=== PATIENT | female | born 2000 | race Caucasian/White ===

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

== ENCOUNTER 2022-04-03 12:08 | Outpatient (CLI) | payer BC, MEDICAID, SELFPAY ==
[2022-04-03 16:28] LABS: Basophils Percent Auto 0.5 % (0.2-1.2); Eosinophils Percent Auto 0.3 % (0-4.4); Hematocrit 41.9 % (37.0-47.0); Hemoglobin 14.4 g/dL (12.0-15.0); Immature Granulocyte Absolute 0.02 K/mm3 (0.00-0.031); Immature Granulocyte Percent A 0.3 % (0-0.5); Lymphocytes Absolute Auto 1.21 K/mm3 (0.9-3.2); Lymphocytes Percent Auto 19.4 % (18.3-44.2); Mean Corpuscular HGB Conc 34.4 g/dl (32-36); Mean Corpuscular Hemoglobin 30.4 pg (26-34); Mean Corpuscular Volume 88.4 fl (80-100); Mean Platelet Volume 11.2 fl (7.4-10.4); Monocytes Absolute Auto 0.4 K/mm3 (0.1-0.6); Monocytes Percent Auto 5.6 % (2.6-8.5); Neutrophils Absolute Auto 4.6 K/mm3 (1.3-6.7); Neutrophils Percent Auto 73.9 % (45.5-73.1); Platelet Count Result 250 k/mm3 (150-375); Red Blood Count 4.74 M/mm3 (4.2-5.4); Red Cell Distribution Width 12.5 % (11.5-14.5); White Blood Count 6.2 K/mm3 (4.5-10.0)
[2022-04-03 17:28] LABS: Alanine Aminotransferase 16 U/L (6-35); Alkaline Phosphatase 60 U/L (38-126); Anion Gap 15 mmol/L (8-16); Aspartate Amino Transferase 24 U/L (14-36); Bilirubin,Total 0.5 mg/dL (0.2-1.3); Blood Urea Nitrogen 10 mg/dL (7-17); Calcium 9.4 mg/dL (8.4-10.2); Carbon Dioxide 20 mmol/L (22-30); Chloride 106 mmol/L (98-107); Estimated Glomerular Filt Rate > 60; Glucose 93 mg/dL (65-110); Potassium 3.2 mmol/L (3.4-5.0); Sodium 141 mmol/L (137-145)
[2022-04-03 17:53] LABS: Thyroid Stimulating Hormone 0.151 uIU/mL (0.465-4.680)
[2022-04-03 17:58] LABS: Vitamin D 25 Hydroxy 70.1 ng/mL
[2022-04-03 18:33] LABS: Folic Acid > 20.0 ng/mL (2.76->20)
== END 2022-04-03 12:09 | disposition home or self-care (01) ==
PROVIDERS: PCP Internal Medicine; Visit Provider Internal Medicine
DX: G80.9 Cerebral palsy, unspecified (principal); Z13.0 Encounter for screening for diseases of the blood and blood-forming organs and certain disorders involving the immune mechanism; Z13.228 Encounter for screening for other metabolic disorders; Z13.29 Encounter for screening for other suspected endocrine disorder; E55.9 Vitamin D deficiency, unspecified
CPT/HCPCS: 36415; 80053; 82306; 82607; 82746; 84443; 85025

== ENCOUNTER 2022-04-17 13:26 | Outpatient (CLI) | payer BC, MEDICAID, SELFPAY ==
[2022-04-17 19:41] LABS: Anion Gap 14 mmol/L (8-16); Blood Urea Nitrogen 13 mg/dL (7-17); Calcium 9.3 mg/dL (8.4-10.2); Carbon Dioxide 21 mmol/L (22-30); Chloride 107 mmol/L (98-107); Estimated Glomerular Filt Rate > 60; Glucose 96 mg/dL (65-110); Magnesium 2.1 mg/dL (1.6-2.3); Potassium 3.9 mmol/L (3.4-5.0); Sodium 142 mmol/L (137-145)
[2022-04-17 20:00] LABS: Free T4 Free Thyroxine 1.22 ng/mL (0.78-2.19)
[2022-04-20 20:38] LABS: Triiodothyronine T3 Free 3.1 pg/mL (2.3-4.2)
== END 2022-04-17 13:27 | disposition home or self-care (01) ==
LOC: ANHGOSHLAB 13:29
PROVIDERS: PCP Internal Medicine; Visit Provider Internal Medicine
DX: E05.90 Thyrotoxicosis, unspecified without thyrotoxic crisis or storm (principal); E87.6 Hypokalemia
CPT/HCPCS: 36415; 80048; 83735; 84439; 84443; 84481

== ENCOUNTER 2022-10-02 12:03 | Outpatient (CLI) | payer BC, MEDICAID, SELFPAY ==
[2022-10-02 16:56] LABS: Basophils Percent Auto 0.3 % (0.2-1.2); Eosinophils Absolute Auto 0.1 K/mm3 (0-0.3); Eosinophils Percent Auto 1.6 % (0-4.4); Hematocrit 42.5 % (37.0-47.0); Immature Granulocyte Absolute 0.02 K/mm3 (0.00-0.031); Immature Granulocyte Percent A 0.3 % (0-0.5); Immature Platelet Fraction Pct 11.3 % (0.9-11.2); Lymphocytes Absolute Auto 1.55 K/mm3 (0.9-3.2); Lymphocytes Percent Auto 24.2 % (18.3-44.2); Mean Corpuscular HGB Conc 32.9 g/dl (32-36); Mean Corpuscular Hemoglobin 29.4 pg (26-34); Mean Corpuscular Volume 89.3 fl (80-100); Monocytes Absolute Auto 0.4 K/mm3 (0.1-0.6); Monocytes Percent Auto 5.6 % (2.6-8.5); Neutrophils Absolute Auto 4.4 K/mm3 (1.3-6.7); Platelet Count Result 200 k/mm3 (150-375); Red Blood Count 4.76 M/mm3 (4.2-5.4); Red Cell Distribution Width 12.9 % (11.5-14.5); White Blood Count 6.4 K/mm3 (4.5-10.0)
[2022-10-02 17:19] LABS: Alanine Aminotransferase 19 U/L (6-35); Albumin Level 4.6 g/dL (3.5-5.1); Alkaline Phosphatase 66 U/L (38-126); Anion Gap 10 mmol/L (8-16); Aspartate Amino Transferase 26 U/L (14-36); Bilirubin,Total 0.6 mg/dL (0.2-1.3); Blood Urea Nitrogen 11 mg/dL (7-17); Calcium 9.3 mg/dL (8.4-10.2); Carbon Dioxide 25 mmol/L (22-30); Chloride 107 mmol/L (98-107); Estimated Glomerular Filt Rate > 60; Glucose 100 mg/dL (65-110); Potassium 4.1 mmol/L (3.4-5.0); Sodium 142 mmol/L (137-145)
[2022-10-02 17:47] LABS: Thyroid Stimulating Hormone 0.191 uIU/mL (0.465-4.680)
[2022-10-02 18:02] LABS: Vitamin D 25 Hydroxy 66.5 ng/mL
[2022-10-02 18:40] LABS: Platelet Estimate Adequate (Adequate); Schistocytes None Seen (NORMAL)
[2022-10-06 04:29] LABS: Thyroid Peroxidase Antibodies <1 IU/mL (<9)
== END 2022-10-02 12:04 | disposition home or self-care (01) ==
LOC: ANHGOSHLAB 12:05
PROVIDERS: PCP Internal Medicine; Visit Provider Clinical Nurse Specialist
DX: E05.90 Thyrotoxicosis, unspecified without thyrotoxic crisis or storm (principal); E53.8 Deficiency of other specified B group vitamins; E55.9 Vitamin D deficiency, unspecified; E87.6 Hypokalemia
CPT/HCPCS: 36415; 80053; 82306; 82607; 83735; 84439; 84443; 85025; 85055; 86376

== ENCOUNTER 2022-12-04 12:24 | Outpatient (CLI) | payer BC, MEDICAID, SELFPAY ==
--- NOTE | ~2022-12-04 | US_ITS ---
Thyroid ultrasound. Clinical History: Thyrotoxicosis Findings: Real-time sonography of the thyroid gland was performed. The right lobe measures 4.6 x 1.5 x 1.4 cm. The left lobe measures 4.1 x 0.7 x 1.3 cm. The isthmus is 4 mm in AP diameter. Impression: No significant abnormality seen.. Reviewed, dictated and finalized at [facility]. Impression: No significant abnormality seen..
== END 2022-12-04 12:25 | disposition home or self-care (01) ==
PROVIDERS: PCP Internal Medicine; Visit Provider Internal Medicine
DX: E05.90 Thyrotoxicosis, unspecified without thyrotoxic crisis or storm (principal)
CPT/HCPCS: 76536

== ENCOUNTER 2022-12-04 13:23 | Outpatient (CLI) | payer BC, MEDICAID, SELFPAY ==
[2022-12-04 19:27] LABS: Free T4 Free Thyroxine 1.16 ng/mL (0.78-2.19)
[2022-12-04 20:02] LABS: Thyroid Stimulating Hormone 0.301 uIU/mL (0.465-4.680)
[2022-12-06 13:48] LABS: Thyroid Stimulating Immunoglob <89 % baseline (<140)
[2022-12-07 02:20] LABS: Thyroid Peroxidase Antibodies <1 IU/mL (<9)
[2022-12-07 04:28] LABS: Triiodothyronine T3 Free 3.5 pg/mL (2.3-4.2)
[2022-12-07 18:35] LABS: Thyrotropin Receptor Antibody <1.00 IU/L (<=2.00)
== END 2022-12-04 13:24 | disposition home or self-care (01) ==
LOC: ANHGOSHLAB 13:26
PROVIDERS: PCP Internal Medicine; Visit Provider Internal Medicine
DX: E05.90 Thyrotoxicosis, unspecified without thyrotoxic crisis or storm (principal)
CPT/HCPCS: 36415; 83519; 84439; 84443; 84445; 84481; 86376

== ENCOUNTER 2022-12-26 11:52 | Outpatient (CLI) | payer BC, MEDICAID, SELFPAY ==
--- NOTE | ~2022-12-26 | XR_ITS ---
EXAMINATION: SCOLIOSIS DATE: 12/26/2022 20:17 CDT INDICATION: Cerebral palsy TECHNIQUE: Standing AP and lateral views of the thoracolumbar spine FINDINGS: There are 12 rib bearing thoracic vertebral bodies and 5 non-rib bearing lumbar type verteb ral bodies. There is no listhesis, compression deformity or vertebral body anomalies. There is mild dextrocurvature of the thoracolumbar spine centered at T12 of 8 degrees. Incidental note is made of fecal impaction of the colon and rectum. There are degenerative changes and remodeling of the left hi p/acetabulum. IMPRESSION: 1. Mild dextroscoliosis of the thoracolumbar spine measuring 8 degrees. 2. No vertebral body anomalies. 3: Fecal impaction of the colon and rectum. Reviewed, dictated and finalized at location A.
--- NOTE | ~2022-12-26 | XR_ITS ---
AP and lateral views of the bilateral hips Clinical history: Pain Findings: No acute fracture or dislocation is seen. There is probable mild dysplasia of the left acet abulum and left femoral head. Questionable minimal dysplasia of the right acetabulum.. Soft tissues a re unremarkable. 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 Additional minimal dysplasia of the r ight acetabulum. Reviewed, dictated and finalized at location M. 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 Additional mini mal dysplasia of the right acetabulum.
== END 2022-12-26 11:53 | disposition home or self-care (01) ==
PROVIDERS: PCP Internal Medicine; Visit Provider Clinical Nurse Specialist
DX: G80.9 Cerebral palsy, unspecified (principal); M25.559 Pain in unspecified hip; K56.41 Fecal impaction; M41.9 Scoliosis, unspecified
CPT/HCPCS: 72082; 73521

== ENCOUNTER 2024-03-14 12:44 | Emergency (ER) | payer BC, MEDICAID, SELFPAY ==
--- NOTE | ~2024-03-14 | CT_ITS ---
EXAMINATION: CT abdomen pelvis w con DATE: 03/14/2024 14:11 INDICATION: Left lower quadrant abdominal pain. Constipation. TECHNIQUE: Computed tomography (CT) of the abdomen and pelvis was performed with 100 mL Omnipaque 350 intravenous contrast. Automated exposure control and iterative reconstruction technique were employe d. The dose-length product was 211.91 mGy-cm. COMPARISON: None. FINDINGS: The visualized portions of the lung bases demonstrate minimal atelectasis. No pleural effus ion. The heart size is normal. No pericardial effusion. The liver, gallbladder, spleen, pancreas, adr enal glands, and kidneys are normal. The rectosigmoid is distended with a large volume of stool. Ther e are no pathologically enlarged lymph nodes. There is no free intraperitoneal fluid. There is a cath eter in the bladder. There is a subcutaneous pump in right lower quadrant with intrathecal catheter. There is mild thoracic and lumbar spondylosis. There is lumbar dextroscoliosis is noted. IMPRESSION: 1. Distended rectosigmoid with large volume of stool. Reviewed, dictated and finalized at location A.
[2024-03-14 12:45] VITALS: BP 140/106; PULSE 146; RESP 16; TEMP 36.6; O2SAT 100
--- NOTE | 2024-03-14 13:12 | ED.GENADULT ---
HPI - General Adult General Chief complaint: Abdominal Pain Stated complaint: dehydration? Time Seen by Provider: 03/14/24 13:05 History of Present Illness HPI narrative: Patient 23-year-old female who presents emergency department with chief complaint of abdominal pain and constipation. The patient has history of cerebral palsy and has had issues with constipation the patient passed some large stools and then started having liquid stool and then has not had a bowel movement since the patient started vomiting and a noticed her heart rate has been tachycardic. The family is concerned that she may have a bowel obstruction Related Data Home Medications Medication Instructions Recorded Confirmed Baclofen Pump See Rx Instructions .Route .COMPLEX 10/21/19 04/10/23 montelukast 10 mg tablet 10 mg PO DAILY 10/21/19 04/10/23 polyethylene glycol 3350 17 17 g PO QPM 10/21/19 04/10/23 gram/dose oral powder (Miralax) sennosides 8.6 mg tablet (Senna 8.6 mg PO QPM 10/21/19 04/10/23 Laxative) Allergies Allergy/AdvReac Type Severity Reaction Status Date / Time No Known Allergies Allergy Verified 03/14/24 13:42 Review of Systems Review of Systems: A 10 system review of systems was completed on the patient and is negative except for what is stated in the HPI. Nursing and ancillary documentation was reviewed. [facility] Past Medical History Medical History Cerebral palsy Surgical History Surgical History History of strabismus surgery Hx of tonsillectomy Status post insertion of intrathecal baclofen pump Family History Family History Grandparent CHF (congestive heart failure) COPD (chronic obstructive pulmonary disease) Breast cancer Lung cancer Sibling ADHD Social History Social History Smoking status: Never smoker Alcohol intake: never Substance use: never Lack of Transportation: No Lack of Food: Never True Current Housing: I Have Housing Concerned About Future Housing: No Difficulty Paying Gas/Electric Bills: No Difficulty Paying for Meds: No Currently Unemployed: No Education: High School Diploma/GED Difficulty w/ Childcare or Family Care: No Exam Narrative: GENERAL: Well-appearing, well-nourished, and in no acute distress. HEAD: Normocephalic, atraumatic. EYES: PERRLA and EOMI. ENT: Nares clear, no rhinorrhea or epistaxis. Mucous membranes moist. NECK: Supple. CHEST: Clear to auscultation. No respiratory distress. HEART: Regular rate and rhythm. No murmur heard. Normal peripheral pulses. ABDOMEN: Soft, nontender, nondistended, normal active bowel sounds. EXTREMITIES: Normal range of motion. No edema. SKIN: Warm, dry, no rash. NEURO: No focal deficits. Alert and oriented x3. PSYCH: Normal mood and affect. Course Vital Signs Vital signs: Vital Signs Temperature 36.6 C 03/14/24 12:45 Pulse Rate 146 H 03/14/24 12:45 Respiratory Rate 16 03/14/24 12:45 Blood Pressure 140/106 H 03/14/24 12:45 Pulse Oximetry 100 03/14/24 12:45 Oxygen Delivery Room Air 03/14/24 12:45 Temperature 36.6 C 03/14/24 12:45 Pulse Rate 87 03/14/24 16:41 Respiratory Rate 16 03/14/24 16:41 Blood Pressure 121/78 03/14/24 16:41 Pulse Oximetry 99 03/14/24 16:41 Oxygen Delivery Room Air 03/14/24 12:45 Medical Decision Making [facility] Narrative Medical decision making narrative: Differential diagnosis includes fecal impaction, intra-abdominal infection, diverticulitis, colitis CT scan of the abdomen pelvis showed a large amount of stool in the rectal vault. The patient received a soapsuds enema then digital disimpaction with a follow-up Colace enema. The patient did have a bowel movement at that time Pa
[2024-03-14] MEDS: ONDANSETRON INJ 4 MG/2 ML VIAL IV PUSH (13:29)
[2024-03-14] MEDS: SODIUM CHLORIDE 0.9% IV 1,000 ML 999 ML IV CONT (13:29)
[2024-03-14 13:32] LABS: Basophils Percent Auto 0.3 % (0.2-1.2); Eosinophils Percent Auto 0.1 % (0-4.4); Hematocrit 45.4 % (37.0-47.0); Hemoglobin 15.6 g/dL (12.0-15.0); Immature Granulocyte Absolute 0.02 K/mm3 (0.00-0.031); Immature Granulocyte Percent A 0.2 % (0-0.5); Lymphocytes Absolute Auto 1.53 K/mm3 (0.9-3.2); Lymphocytes Percent Auto 17.1 % (18.3-44.2); Mean Corpuscular HGB Conc 34.4 g/dl (32-36); Mean Corpuscular Hemoglobin 30.4 pg (26-34); Mean Corpuscular Volume 88.3 fl (80-100); Mean Platelet Volume 10.5 fl (7.4-10.4); Monocytes Absolute Auto 0.4 K/mm3 (0.1-0.6); Monocytes Percent Auto 3.9 % (2.6-8.5); Neutrophils Percent Auto 78.4 % (45.5-73.1); Platelet Count Result 286 k/mm3 (150-375); Red Blood Count 5.14 M/mm3 (4.2-5.4); Red Cell Distribution Width 12.1 % (11.5-14.5)
[2024-03-14 13:43] LABS: Lactic Acid Reflex 1.5 mmol/L (0.7-2.0)
[2024-03-14 13:45] LABS: Alanine Aminotransferase 20 U/L (6-35); Albumin Level 5.6 g/dL (3.5-5.1); Alkaline Phosphatase 63 U/L (38-126); Anion Gap 16 mmol/L (4-12); Aspartate Amino Transferase 32 U/L (14-36); Bilirubin,Total 1.2 mg/dL (0.2-1.3); Blood Urea Nitrogen 13 mg/dL (7-17); Calcium 9.8 mg/dL (8.4-10.2); Carbon Dioxide 18 mmol/L (22-30); Chloride 104 mmol/L (98-107); Estimated Glomerular Filt Rate > 60; Glucose 105 mg/dL (65-110); Lipase 100 U/L (23-300); Potassium 4.2 mmol/L (3.4-5.0); Sodium 138 mmol/L (137-145)
[2024-03-14 15:22] LABS: Appearance Urine Clear (Clear); Bilirubin Urine Negative (Negative); Blood Urine Negative (Negative); Color Urine Yellow (Yellow); Glucose Urine UA Negative (Negative); Ketones Urine 2+ mg/dL (Negative); Leukocyte Esterase Ur Negative LEU/UL (Negative); Nitrate Urine Negative (Negative); Protein Urine Negative (Negative); Specific Grav Ur 1.031 (1.001-1.035); Urobilinogen Urine 0.2 mg/dL (<2.0); pH Urine 5.5 (5.0-9.0)
[2024-03-14 15:27] LABS: Add Urine Microscopic? NO
[2024-03-14 16:41] VITALS: BP 121/78; PULSE 87; RESP 16; O2SAT 99
[2024-03-14] MEDS: DOCUSATE SODIUM 400 MG/400 ML ENEMA RECTAL (17:02)
[2024-03-14 18:25] VITALS: BP 138/89; PULSE 82; RESP 19; O2SAT 100
== END 2024-03-14 18:29 | disposition home or self-care (01) ==
PROVIDERS: Nurse Practitioner Family; Emergency Provider Emergency Medicine; PCP Internal Medicine
DX: K59.00 Constipation, unspecified (principal); G80.9 Cerebral palsy, unspecified; Z79.1 Long term (current) use of non-steroidal anti-inflammatories (NSAID); Z79.899 Other long term (current) drug therapy
CPT/HCPCS: 36415; 74177; 80053; 81003; 81025; 83605; 83690; 85025; 96361; 96374; 99284; J2405; J7030; Q9967

== ENCOUNTER 2024-03-17 15:26 | Inpatient (IN) | payer BC, MEDICAID, SELFPAY ==
--- NOTE | ~2024-03-17 | CT_ITS ---
EXAMINATION: CT abdomen pelvis w con DATE: 03/17/2024 22:06 INDICATION: Generalized abdominal pain. Constipation. TECHNIQUE: Computed tomography (CT) of the abdomen and pelvis was performed with 100 mL Omnipaque 350 intravenous contrast. Automated exposure control and iterative reconstruction technique were employe d. The dose-length product was 211.94 mGy-cm. COMPARISON: CT abdomen and pelvis 03/14/2024 FINDINGS: The visualized portions of the lung bases are clear without pneumonia or pleural effusion. The heart size is normal. No pericardial effusion. The liver, gallbladder, spleen, pancreas, adrenal glands, and kidneys are normal. Stool markedly distends the rectosigmoid with wall thickening, consis tent with stercoral colitis. There are no pathologically enlarged lymph nodes. There is no ascites. T here is an intrathecal pump. There is thoracolumbar dextroscoliosis. IMPRESSION: 1. Stercoral colitis. Reviewed, dictated and finalized at location E. IMPRESSION: 1. Stercoral colitis.
--- NOTE | ~2024-03-17 | XR_ITS ---
XR abdomen/kub 1V 03/21/2024 10:25 Indication: Assess fecal impaction Procedure: KUB Comparison: 03/20/2024 Findings: Significant improvement of fecal impaction of the rectum. There are dilated small bowel loo ps throughout the abdomen, consistent with ileus. No acute osseous abnormality. Lung bases unremarkab le. No abnormal calcifications. No acute osseous abnormality. Impression: 1: Significant interval improvement of fecal impaction of the rectum. Reviewed, dictated and finalized at location B. Impression: 1: Significant interval improvement of fecal impaction of the rectum.
--- NOTE | ~2024-03-17 | XR_ITS ---
XR abdomen obstructive series 03/18/2024 11:12 Indication: Constipation Procedure: Supine and upright views of abdomen Comparison: CT dated 03/17/2024 Findings: There is fecal impaction of the distal colon or rectum with mildly dilated small bowel and colon which are gas-filled. There is a battery device overlying the right mid abdomen. No acute osseo us abnormality. Impression: 1: Fecal impaction of the distal colon and rectum. Reviewed, dictated and finalized at location B. Impression: 1: Fecal impaction of the distal colon and rectum.
--- NOTE | ~2024-03-17 | XR_ITS ---
Supine and upright views of the abdomen Clinical history: Stool impaction COMPARISON: 03/18/2024 Findings: There is large amount of stool at the rectum, compatible with fecal impaction.. No evidence for obstruction or free air. No abnormal mass lesion or calcification is seen. Osseous structures ar e intact. Impression: Large amount of stool at the rectum is compatible with fecal impaction. Appearance is similar to prio r exam. Reviewed, dictated and finalized at location M. Impression: Large amount of stool at the rectum is compatible with fecal impaction. Appeara nce is similar to prior exam.
[2024-03-17 15:32] VITALS: BP 117/81; PULSE 108; RESP 16; TEMP 36.7; O2SAT 99
[2024-03-17 17:41] VITALS: BP 110/78; PULSE 103; RESP 17; TEMP 36.6; O2SAT 100
[2024-03-17 19:53] VITALS: BP 128/86; PULSE 110; RESP 15; TEMP 36.6; O2SAT 99
[2024-03-17 20:22] VITALS: BP 128/85; PULSE 95; RESP 15; O2SAT 100
--- NOTE | 2024-03-17 20:36 | ECG_ITS ---
Test Date: 2024-03-17 21:49:45 Measurements Intervals [place] Rate: 126 P: 78 [place]: 144 QRS: 90 QRSD: 70 T: 12 QT: 312 QTc: 452 Interpretive Statements SINUS TACHYCARDIA ST-T WAVE ABNORMALITY IN ANTERIOR LEADS- CONSIDER ISCHEMIA ABNORMAL ECG No previous ECG available for comparison Electronically Signed On 03-18-2024 06:14:20 CDT by Anthony Abdi D.O.
--- NOTE | 2024-03-17 20:38 | ED.GENADULT ---
HPI - General Adult General Chief complaint: Unspecified <Licha Donohue PA-C - Last Filed: 03/18/24 01:45> Stated complaint: sent by PCP for re eval <Licha Donohue PA-C - Last Filed: 03/18/24 01:45> Time Seen by Provider: 03/17/24 19:51 <Licha Donohue PA-C - Last Filed: 03/18/24 01:45> History of Present Illness HPI narrative: 23-year-old female with history of CP presents to emergency department with her mother at bedside for constipation. patient and mother both provide history. Patient's mother states she passed a very large stool ball 5 days ago and few hours later had a bout of diarrhea. Since then she has not had any bowel movement. She has been seen in our emergency department and [facility] ER since. She had [address] performed our ED and a KUB at [facility]. States that she has had attempted multiple enemas and GoLYTELY without improvement. She is passing gas but is not able to pass any stool. She reports diffuse abdominal discomfort but denies any significant pain. She denies dysuria. She did recently start her menstrual cycle. They also presenting with concerns for her fast heart rate. She went to see her PCP today, Dr. Valadez, and was found to be tachycardic around 160 bpm while in the office. Patient's PCP had advised him to come to the ED for further evaluation given her significant tachycardia and constipation. She denies chest pain or shortness of breath, fever. Patient and mother both note that she has been having difficulty keeping down food and fluids secondary to abdominal discomfort. She had 2 episodes of emesis a few days ago and has not been able to keep down much since. <Licha Donohue PA-C - Last Filed: 03/18/24 01:45> Related Data Home medications: Home Medications Medication Instructions Recorded Confirmed Baclofen Pump See Rx Instructions .Route .COMPLEX 10/21/19 03/18/24 montelukast 10 mg tablet 10 mg PO DAILY PRN Allergy Symptoms 10/21/19 03/18/24 sennosides 8.6 mg tablet (Senna 40 mg PO QPM 10/21/19 03/18/24 Laxative) potassium chloride 10 mEq 10 meq PO DAILY 03/18/24 03/18/24 capsule,extended release <Licha Donohue PA-C - Last Filed: 03/18/24 01:45> Allergies/adverse reactions: Allergies Allergy/AdvReac Type Severity Reaction Status Date / Time No Known Allergies Allergy Verified 03/17/24 14:05 <Licha Donohue PA-C - Last Filed: 03/18/24 01:45> Review of Systems Review of Systems: CONSTITUTIONAL: Denies fever, chills, or sweats. EYES: Denies visual changes, redness, or discharge. ENT: Denies rhinorrhea, congestion, sore throat, or otalgia. CARDIOVASCULAR: see HPI RESPIRATORY: Denies cough or dyspnea. GASTROINTESTINAL: See HPI GENITOURINARY: Denies dysuria or hematuria. SKIN: Denies rash or itching. MUSCULOSKELETAL: Denies back pain, joint pain, or myalgia. NEUROLOGIC: Denies headache, numbness, or weakness. PSYCHIATRIC: Denies anxiety or depression. <ALIYAH Heath Last Filed: 03/18/24 01:45> [facility] Past Medical History Medical History: Medical History Cerebral palsy <Licha Donohue PA-C - Last Filed: 03/18/24 01:45> Surgical History Surgical History: Surgical History History of strabismus surgery Hx of tonsillectomy Status post insertion of intrathecal baclofen pump <Licha Donohue PA-C - Last Filed: 03/18/24 01:45> Family History Family History: Family History Grandparent CHF (congestive heart failure) COPD (chronic obstructive pulmonary disease) Breast cancer Lung cancer Sibling ADHD <ALIYAH Heath Last Filed: 03/18/24 01:45> Social History Social History: Social History Smoking status: Never smoker Alcoho
[2024-03-17 21:15] LABS: Basophils Percent Auto 0.5 % (0.2-1.2); Eosinophils Absolute Auto 0.2 K/mm3 (0-0.3); Eosinophils Percent Auto 2.7 % (0-4.4); Hemoglobin 15.7 g/dL (12.0-15.0); Immature Granulocyte Absolute 0.02 K/mm3 (0.00-0.031); Immature Granulocyte Percent A 0.3 % (0-0.5); Lymphocytes Absolute Auto 2.19 K/mm3 (0.9-3.2); Lymphocytes Percent Auto 28.1 % (18.3-44.2); Mean Corpuscular HGB Conc 34.1 g/dl (32-36); Mean Corpuscular Hemoglobin 30.6 pg (26-34); Mean Corpuscular Volume 89.7 fl (80-100); Mean Platelet Volume 10.3 fl (7.4-10.4); Monocytes Absolute Auto 0.6 K/mm3 (0.1-0.6); Monocytes Percent Auto 7.1 % (2.6-8.5); Neutrophils Absolute Auto 4.8 K/mm3 (1.3-6.7); Neutrophils Percent Auto 61.3 % (45.5-73.1); Platelet Count Result 291 k/mm3 (150-375); Red Blood Count 5.13 M/mm3 (4.2-5.4); Red Cell Distribution Width 12.3 % (11.5-14.5); White Blood Count 7.8 K/mm3 (4.5-10.0)
[2024-03-17 21:37] LABS: Alanine Aminotransferase 14 U/L (6-35); Albumin Level 5.4 g/dL (3.5-5.1); Alkaline Phosphatase 67 U/L (38-126); Anion Gap 17 mmol/L (4-12); Aspartate Amino Transferase 27 U/L (14-36); Bilirubin,Total 0.7 mg/dL (0.2-1.3); Blood Urea Nitrogen 15 mg/dL (7-17); Calcium 9.8 mg/dL (8.4-10.2); Carbon Dioxide 23 mmol/L (22-30); Chloride 101 mmol/L (98-107); Estimated Glomerular Filt Rate > 60; Glucose 85 mg/dL (65-110); Lipase 145 U/L (23-300); Potassium 3.9 mmol/L (3.4-5.0); Sodium 141 mmol/L (137-145)
[2024-03-17] MEDS: SODIUM CHLORIDE 0.9% IV 1,000 ML 999 ML IV CONT ×2 (21:38→23:01)
[2024-03-17 21:50] LABS: Lactic Acid Reflex 0.7 mmol/L (0.7-2.0)
--- NOTE | 2024-03-17 22:18 | ECG_ITS ---
Test Date: 2024-03-17 22:21:50 Measurements Intervals [place] Rate: 114 P: 75 [place]: 157 QRS: 79 QRSD: 72 T: -3 QT: 320 QTc: 442 Interpretive Statements SINUS TACHYCARDIA ST-T WAVE ABNORMALITY IN ANTERIOR LEADS- CONSIDER ISCHEMIA ABNORMAL ECG Compared to ECG 03/17/2024 21:49:45 No significant changes Electronically Signed On 03-18-2024 06:14:45 CDT by Anthony Abdi D.O.
[2024-03-17 22:51] LABS: Troponin I < 0.012 ng/mL (0.000-0.034)
[2024-03-17 22:52] VITALS: BP 140/93; PULSE 92; RESP 14; O2SAT 100
[2024-03-18] VITALS (12 sets, daily range): BP systolic 111–137; BP diastolic 69–94; PULSE 67–102; RESP 15–20; TEMP 36.1–36.8; O2SAT 98–100
--- NOTE | 2024-03-18 | ECHO_ITS ---
Patient Info Name: Senia Monteiro Age: 23 years : 2000 Gender: Female Ht: 59 in Wt: 92 lbs BSA: 1.31 m2 HR: 77 bpm BP: 128 / 80 mmHg Heart Rhythm: Sinus Rhythm Technical Quality: Fair Exam Date: 03/18/2024 8:56 AM Exam Location: Echo Lab Patient Status: Inpatient Admit Date: 03/18/2024 Staff Ordering Physician: Yusra Rosales MD Principal Cloud Architect: Rosario Colbert RDCS Attending Provider: Trang Pena APRN Referring Physician: Connie JACOBS; Exam Type: CA echo dop color flow w con Study Info Indications R00.0 - Tachycardia, unspecified Complete two-dimensional, color flow and Doppler transthoracic echocardiogram is performed with contrast to opacify the left ventricle and to improve the deliniation of the left ventricle endocardial borders. Contrast/Agitated Saline Contrast/Ag. Saline: Definity Amount: 2.00 ml Administered By: Rosario Colbert RDCS Existing IV Access: Yes IV Access Condition: patent with no signs of infiltration Summary 1. Definity contrast administered improved wall motion interpretation. 2. Left ventricular chamber dimension is normal. 3. Left ventricular systolic function is normal, estimated at 65-70%. 4. The left ventricular diastolic function is normal. 5. E/e' 4 is not elevated. Left Ventricle E/e' 4 is not elevated. Definity contrast administered improved wall motion interpretation. Left ventricular chamber dimension is normal. Left ventricular systolic function is normal, estimated at 65-70%. The left ventricular diastolic function is normal. Right Ventricle Right ventricular systolic function is normal and with normal TAPSE 1.8 cm. Right ventricular chamber dimension is normal. Left Atria Left atrial chamber dimension is normal. Right Atria Right atrial chamber dimension is normal. Aortic Valve The aortic valve is probable trileaflet. There is no aortic valve stenosis. There is no aortic valve regurgitation. Pulmonic Valve There is no pulmonic regurgitation. Mitral Valve There is no mitral valve stenosis. There is no mitral valve regurgitation. Tricuspid Valve There is no tricuspid valve regurgitation. Pericardium/Pleural There is no pericardial effusion. Inferior Vena Cava Normal inferior vena cava with >50% collapse upon inspiration consistent with normal right atrial pressure, 5 mmHg. Aorta The aortic root size at the sinus of Valsalva is normal. Left Ventricular Outflow Tract Name Value Normal LVOT 2D LVOT Diameter 1.88 cm LVOT Doppler LVOT Peak Gradient 3 mmHg LVOT Mean Gradient 1 mmHg LVOT VTI 11.76 cm LVOT VTI/AV VTI Ratio 0.78 LVOT Stroke Volume 32.55 ml LVOT CO 2.51 l/min LVOT CI 1.91 L/min/m2 Pulmonic Valve Name Value Normal RVOT Doppler
[2024-03-18 01:39] LABS: Appearance Urine Clear (Clear); Bilirubin Urine Negative (Negative); Blood Urine Negative (Negative); Color Urine Yellow (Yellow); Glucose Urine UA Negative (Negative); Ketones Urine 2+ mg/dL (Negative); Leukocyte Esterase Ur Negative LEU/UL (Negative); Nitrate Urine Negative (Negative); Protein Urine Negative (Negative); Specific Grav Ur > 1.045 (1.001-1.035); Urobilinogen Urine 0.2 mg/dL (<2.0)
[2024-03-18 01:45] LABS: Add Urine Microscopic? YES
--- NOTE | 2024-03-18 02:21 | ADMGEN ---
This patient, Senia Monteiro, was admitted to Medical Room 253-. Patient/family oriented to hospital policies and general routines including ID bracelet, bed and alarms, visiting hours, pain management, procedures, bathroom and other care routines, personal items, smoking policy, room service/diet, and visiting hours. Information on how to activate the Rapid Response Team has been discussed. Patient/Family are encouraged to report perceived risks to care and to ask questions if they do not understand what they are told or what they should do.
--- NOTE | 2024-03-18 02:27 | PM.IMHP ---
H&P: HPI History of Present Illness Date/Time: 03/18/24 02:27 Chief Complaint: Constipation Narrative: Pt has history of cerebral palsy. Pt has been having constipation issues since Sun, pt came here for deimpactation and enema on sunday. On sat [facility] all [facility] doctors [facility], since no relief. Pt started vomiting called her PCP told her to come into ED. Pt had deimpactation again in ED and soap suds to clear which helped a little. Pt has chronic problem with constipation and use golytely and miralax at home. Pt admitted for severe constipation for further serial soap suds and GI consult Review of Systems Review of Systems: Tight sore abdomen an emesis, severe constipation All other 12 systems are negative PMFSH Past Medical History Medical History Cerebral palsy Surgical History Surgical History History of strabismus surgery Hx of tonsillectomy Status post insertion of intrathecal baclofen pump Family History Family History Grandparent CHF (congestive heart failure) COPD (chronic obstructive pulmonary disease) Breast cancer Lung cancer Sibling ADHD Social History Social History Smoking status: Never smoker Alcohol intake: never Substance use: never Do You Feel Safe in your Home?: Yes Lack of Transportation: No Lack of Food: Never True Current Housing: I Have Housing Concerned About Future Housing: No Difficulty Paying Gas/Electric Bills: No Difficulty Paying for Meds: No Currently Unemployed: No Education: Grade School Difficulty w/ Childcare or Family Care: No Spiritual care concerns: No Meds Home Medications and Allergies Home Medications Medication Instructions Recorded Confirmed Type Baclofen Pump See Rx Instructions .Route .COMPLEX 10/21/19 03/18/24 History montelukast 10 mg tablet 10 mg PO DAILY PRN Allergy Symptoms 10/21/19 03/18/24 History sennosides 8.6 mg tablet (Senna 40 mg PO QPM 10/21/19 03/18/24 History Laxative) medroxyprogesterone 150 mg/mL 150 mg IM Q3M #1 mL 06/14/23 03/18/24 Rx intramuscular suspension polyethylene glycol 3350 17 34 g PO DAILY 4 days #136 grams 03/14/24 03/18/24 Rx gram/dose oral powder (Miralax) potassium chloride 10 mEq 10 meq PO DAILY 03/18/24 03/18/24 History capsule,extended release Allergies Allergy/AdvReac Type Severity Reaction Status Date / Time No Known Allergies Allergy Verified 03/17/24 14:05 Vital Signs Vital Signs - 24 hr 03/17/24 15:32 03/17/24 17:41 03/17/24 19:53 Temperature 36.7 C 36.6 C 36.6 C Pulse Rate 108 H 103 H 110 H Respiratory Rate 16 17 15 Blood Pressure 117/81 110/78 128/86 Pulse Oximetry 99 100 99 Oxygen Delivery Room Air 03/17/24 20:22 03/17/24 22:52 03/18/24 01:43 Temperature Pulse Rate 95 92 67 Respiratory Rate 15 14 15 Blood Pressure 128/85 140/93 H 134/94 H Pulse Oximetry 100 100 99 Oxygen Delivery 03/18/24 01:59 03/18/24 02:26 Temperature 36.3 C L Pulse Rate 73 88 Respiratory Rate 15 20 Blood Pressure 130/78 129/80 Pulse Oximetry 98 100 Oxygen Delivery Exam Const: General: in distress, thin and other (younger female chronically ill thin appearing and weak ) Nutritional Appearance: overweight Orientation/consciousness: oriented to person HENMT: Head: normal to inspection Resp: Effort & Inspection: no respiratory distress Auscultation: no rhonchi and no wheezes Cardio: Rate: regular rate Rhythm: regular rhythm GI: Inspection: normal to inspection GI Palp: Yes abdominal tenderness, Yes Guarding due to palpation present (GI), Yes Hepatomegaly present and Yes Other GI palpation findings present (tight abdomen ) Auscultation: normal bowel sounds Neuro: General: oriented to person H&P:
--- NOTE | 2024-03-18 08:23 | P.CONGI_ITS ---
I, Raafel Moore MD, have provided a substantive portion of the care of this patient and discussed the patient with my Nurse Practitioner. I have reviewed any new relevant radiographic and laboratory results including medications. I agree with her documentation as noted below.?I personally performed the medical decision making and much of the history and exam for this encounter. briefly, she has cerebral palsy, using baclofen pump and chronic constipation. Recently with more issues and unable to have a good BM for 2 weeks, she got sick of her stomach and admitted. CT scan showed stercoral colitis. Plan is to continue aggressive bowel regimen, continue with miralax/enema, add supository, linzess and lactulose. If still no improvement then consider colonoscopy, never had one. Assessment and Plan Assessment and plan (1) Constipation by delayed colonic transit: Code(s): K59.01 - Slow transit constipation Status: Acute (2) Cerebral palsy: Qualifiers: Cerebral palsy type: unspecified type Qualified Code(s): G80.9 - Cerebral palsy, unspecified Code(s): G80.9 - Cerebral palsy, unspecified Status: Acute (3) Stercoral colitis: Code(s): K52.89 - Other specified noninfective gastroenteritis and colitis Status: Acute Plan 1. Chronic constipation/stercoral colitis/ cerebral palsy: No prior history of colonoscopy. Patient with baclofen pump. She has never had an established GI provider. Patient with chronic intermittent constipation that has been controlled with [id number] medications provided by her mother. Over the past 2 weeks her constipation has become more severe. The patient has been experiencing frequent impaction for about 2 weeks. She has chronic constipation, which happens off and on. The patient has been using Senokot (5-8 per day) and MiraLAX and scoop daily along with Fleet enemas and glycerin suppositories as needed. She has been experiencing discomfort, bloating, and physical distension. Recent imaging shows stool markedly distending the rectosigmoid with wall thickening, consistent with stercoral colitis. Labs are within normal limits. Soft brown stool noted on rectal exam. * Continue monitoring and start aggressive bowel regimen. * tap water enema daily until having regular BM's, next one ordered for this evening * Start Linzess 145 mcg daily, to be continued outpatient and we can adjust dosing according to symptoms and response * Bisacodyl suppository daily to help stimulate lower while inpatient and then as needed outpatient * Continue MiraLax daily Thank you very much for allowing me to share in the care this very nice patient This report may have been done utilizing a voice recognition system. Attempts have been made to correct errors. However, there may be uncorrected grammatical, spelling, and recognition errors present. GI Consult Note Consult date/time: 03/18/24 08:23 Reason for consult: Chronic constipation HPI: This is a very pleasant 23 year old female with past medical surgical history of cerebral palsy and chronic constipation. She is being seen in the office today for evaluation of chronic constipation at the request of her primary care team at [facility]. Patient was accompanied by her mother/ primary caregiver Azul throughout the entire visit. She has not seen a motor coach tour operator on a regular basis and only had a few visits to [facility]. The patient has been experiencing frequent impaction for about 2 weeks. She presented to the emergency room today after experiencing vomiting. She was seen at [facility] on
--- NOTE | 2024-03-18 08:23 | WPDGICN ---
Assessment and Plan Assessment and plan (1) Constipation by delayed colonic transit: Code(s): K59.01 - Slow transit constipation Status: Acute (2) Cerebral palsy: Qualifiers: Cerebral palsy type: unspecified type Qualified Code(s): G80.9 - Cerebral palsy, unspecified Code(s): G80.9 - Cerebral palsy, unspecified Status: Acute (3) Stercoral colitis: Code(s): K52.89 - Other specified noninfective gastroenteritis and colitis Status: Acute Plan 1. Chronic constipation/stercoral colitis/ cerebral palsy: No prior history of colonoscopy. Patient with baclofen pump. She has never had an established GI provider. Patient with chronic intermittent constipation that has been controlled with [id number]-sup-hoirqfa medications provided by her mother. Over the past 2 weeks her constipation has become more severe. The patient has been experiencing frequent impaction for about 2 weeks. She has chronic constipation, which happens off and on. The patient has been using Senokot (5-8 per day) and MiraLAX and scoop daily along with Fleet enemas and glycerin suppositories as needed. She has been experiencing discomfort, bloating, and physical distension. Recent imaging shows stool markedly distending the rectosigmoid with wall thickening, consistent with stercoral colitis. Labs are within normal limits. Soft brown stool noted on rectal exam. Continue monitoring and start aggressive bowel regimen. tap water enema daily until having regular BM's, next one ordered for this evening Start Linzess 145 mcg daily, to be continued outpatient and we can adjust dosing according to symptoms and response Bisacodyl suppository daily to help stimulate lower while inpatient and then as needed outpatient Continue MiraLax daily Thank you very much for allowing me to share in the care this very nice patient This report may have been done utilizing a voice recognition system. Attempts have been made to correct errors. However, there may be uncorrected grammatical, spelling, and recognition errors present. GI Consult Note Consult date/time: 03/18/24 08:23 Reason for consult: Chronic constipation HPI: This is a very pleasant 23 year old female with past medical surgical history of cerebral palsy and chronic constipation. She is being seen in the office today for evaluation of chronic constipation at the request of her primary care team at [facility]. Patient was accompanied by her mother/ primary caregiver Azul throughout the entire visit. She has not seen a program or project administrator on a regular basis and only had a few visits to [facility]. The patient has been experiencing frequent impaction for about 2 weeks. She presented to the emergency room today after experiencing vomiting. She was seen at [facility] on Sunday where she had a disimpaction and enemas performed. Yesterday evening, she had another disimpaction and soapsuds enemas to clear. The patient has been experiencing discomfort in her belly, bloating, and physical distension but this has improved but not resolved since admission. She has not had a bowel movement today and only a small amount of stool was passed last night after an enema. She has been in the ER three times since Sunday trying to resolve the issue. The patient has a baclofen pump in place. She denies any difficult or painful swallowing, heartburn symptoms, blood in the stool, or black stools. The patient denies any nausea or vomiting since being here, and no heartburn symptoms except occasionally. Medications and supplements tried for current symptoms include Senokot (5 to 8 pills a day), MiraLAX (1 to 2 caps), Fleet enemas, and glycerin suppositories from [facility]. No family history of gastrointestinal cancer, Crohn's disease, ulcerative colitis, or celiac disease. She has no history of tobacco or alcohol use. ENDOSCOPY HISTORY: Patient has konrad
[2024-03-18 08:32] LABS: Hematocrit 42.6 % (37.0-47.0); Hemoglobin 14.4 g/dL (12.0-15.0); Mean Corpuscular HGB Conc 33.8 g/dl (32-36); Mean Corpuscular Hemoglobin 30.7 pg (26-34); Mean Corpuscular Volume 90.8 fl (80-100); Mean Platelet Volume 10.1 fl (7.4-10.4); Platelet Count Result 240 k/mm3 (150-375); Red Blood Count 4.69 M/mm3 (4.2-5.4); Red Cell Distribution Width 12.1 % (11.5-14.5); White Blood Count 7.3 K/mm3 (4.5-10.0)
[2024-03-18 08:46] LABS: Alanine Aminotransferase 12 U/L (6-35); Albumin Level 4.6 g/dL (3.5-5.1); Alkaline Phosphatase 56 U/L (38-126); Anion Gap 17 mmol/L (4-12); Aspartate Amino Transferase 23 U/L (14-36); Bilirubin,Total 0.9 mg/dL (0.2-1.3); Blood Urea Nitrogen 5 mg/dL (7-17); Calcium 9.2 mg/dL (8.4-10.2); Carbon Dioxide 21 mmol/L (22-30); Chloride 102 mmol/L (98-107); Estimated Glomerular Filt Rate > 60; Glucose 78 mg/dL (65-110); Potassium 3.7 mmol/L (3.4-5.0); Sodium 140 mmol/L (137-145)
[2024-03-18] MEDS: PERFLUTREN LIPID MICROSPHERES 1.5 ML VIAL DILUTED TO 10 ML TOTAL VOLUME IV PUSH (09:21)
[2024-03-18] MEDS: polyethylene glycoL 3350 17 GM POWD.PACK 34 GM PO (09:35)
[2024-03-18] MEDS: POTASSIUM CHLORIDE 10 MEQ ER TABLET PO (09:35)
--- NOTE | 2024-03-18 11:06 | IVDEFINITY ---
Prior to administration of IV Definity the patient was educated on the risks and benefits of the imaging enhancing agent including potential adverse side effects. The patient verbalized understanding. Allergies were verified. No exclusion criteria were identified and at least one of the following inclusion criteria were met: 1) physician request, 2) patient technically difficult to image (per the [place] [employer] guidelines of two or more segments not discernable within the apical view), or 3) questionable left ventricular function. ?
--- NOTE | 2024-03-18 12:18 | PM.EVENT ---
Event Note Event Note Event Note: Patient had been seen by previous provider same day. I followed up with patient who had a small BM last night following a soapsuds enema. Patient and mother at beside reported she was able to tolerate breakfast this am with N/V. Patient with history of chronic constipation but was unrelieved at home with at home bowel regiment of Senokot and miralax. Patient was seen my GI who recommend continued tap water enema daily until regular BM returns, Bisacodyl suppository while inpatient and to add Linzess 145mcg at discharge. Patient did had episodes of STACH echo with no acute findings and normal EF. Labs unremarkable and vitals were stable ordered obstructive series which showed fecal impaction at the distal colon and rectum. Patient with CP lives at home with her mother as caregiver.
[2024-03-18] MEDS: SENNOSIDES 8.6 MG TABLET 43 MG PO (17:34)
[2024-03-19] VITALS (9 sets, daily range): BP systolic 113–124; BP diastolic 76–90; PULSE 59–112; RESP 16–18; TEMP 35.7–36.9; O2SAT 90–100
[2024-03-19 05:58] LABS: Hemoglobin 14.8 g/dL (12.0-15.0); Mean Corpuscular HGB Conc 33.6 g/dl (32-36); Mean Corpuscular Hemoglobin 30.7 pg (26-34); Mean Corpuscular Volume 91.3 fl (80-100); Mean Platelet Volume 10.8 fl (7.4-10.4); Platelet Count Result 246 k/mm3 (150-375); Red Blood Count 4.82 M/mm3 (4.2-5.4); Red Cell Distribution Width 12.1 % (11.5-14.5); White Blood Count 6.5 K/mm3 (4.5-10.0)
[2024-03-19 06:27] LABS: Alanine Aminotransferase 12 U/L (6-35); Albumin Level 4.9 g/dL (3.5-5.1); Alkaline Phosphatase 54 U/L (38-126); Anion Gap 16 mmol/L (4-12); Aspartate Amino Transferase 23 U/L (14-36); Bilirubin,Total 0.7 mg/dL (0.2-1.3); Blood Urea Nitrogen 12 mg/dL (7-17); Calcium 9.8 mg/dL (8.4-10.2); Carbon Dioxide 20 mmol/L (22-30); Chloride 105 mmol/L (98-107); Estimated Glomerular Filt Rate > 60; Glucose 100 mg/dL (65-110); Potassium 3.7 mmol/L (3.4-5.0); Sodium 141 mmol/L (137-145)
--- NOTE | 2024-03-19 07:28 | PM.IMPN ---
Progress Note: A&P Assessment and Plan (1) Constipation: Qualifiers: Constipation type: unspecified constipation type Qualified Code(s): K59.00 - Constipation, unspecified Code(s): K59.00 - Constipation, unspecified Status: Acute Assessment and Plan: Abdominal pain with constipation on imaging aggressive bowel regimen with stool softeners, laxatives, and Linzess lactulose enema today if no bowel movement, may need colonoscopy GI consulted and recs appreciated repeat KUB tomorrow (2) Sinus tachycardia: Code(s): R00.0 - Tachycardia, unspecified Status: Acute Assessment and Plan: ST with heart rate in the 100's family reports history of high heart rate. Acute elevation could be 2/2 pain EKG from 03/[address]-T wave abnormality in anterior leads Troponin negative, denies chest pain ECHO showed normal LV function with EF 65-70% Telemetry ordered HR for the last 24 hours shows rate in the 70's-80's with occasional read greater than 100 (3) Cerebral palsy: Qualifiers: Cerebral palsy type: unspecified type Qualified Code(s): G80.9 - Cerebral palsy, unspecified Code(s): G80.9 - Cerebral palsy, unspecified Status: Acute Assessment and Plan: Pt is on baclofen pump no other changes in her medications Plan Feeding: Heart healthy Analgesia: Baclofen pain pump Thromboembolic prophylaxis: SCDs Disposition: Awaiting bowel movement and relief of abdominal pain. May need colonoscopy if no improvement. Anticipate her returning home with her mother who is her primary acute care assistant. Advance Care Plan I have confirmed that the patient's Advanced Care Plan is present, code status is documented, or surrogate decision maker is listed in patient medical record.: Yes Medication Reconciliation I have utilized all available resources to obtain, update and review the patients current medications (includes all prescriptions, OTC, herbals, cannabis, and nutritional supplements).: Yes Subjective Date/time seen: 03/19/24 07:28 Interval history: 23 year old with a history of cerebral palsy who presented with abdominal pain and was found to have constipation. 03/19: Patient is seen at the bedside with her mom present. She states that her abdominal pain is slowly improving. She denies nausea or vomiting. She is tolerating a diet. Mom had some concerns about starting Linzess since the patient had not yet had a bowel movement. Since starting lactulose this morning she is now passing hard, small stool. Given the large stool burden noted on CT scan will proceed with lactulose enema today as well. Review of Systems Review of Systems: All other 12 systems are negative Exam Narrative: General: thin, frail, appears stated age. HEENT: normocephalic, atraumatic. Mucous membranes moist. EOMI, PERRLA, bilateral sclera anicteric, no conjunctival injection. Neck supple without JVD, lymphadenopathy, or bruit. Respiratory: clear to auscultation bilaterally. No rales/rhonic/wheezes. Cardiovascular: Regular rate and rhythm, normal S1-S2 upon auscultation. No murmurs, rubs, or clicks. PMI is nondisplaced, capillary refill less than 3 second. Abdomen: Soft, flat, no pulsatile masses, nondistended and nontender. No rebound, no guarding. No CVA tenderness, no hepatosplenomegaly. Bowel sounds hypoactive to all four quadrants. No high pitch or tinkling sounds, resonant to percussion. Extremities: No cyanosis, clubbing, or edema present. Pulses are palpable 2/2. Impaired mobility. Neuro: Alert and orientated x 4. PERRLA. Cranial nerves 2-12 intact without focal deficit. Skin: Warm, dry, and intact, without rash, erythema, or lesion. Lines: PIV Incisions: Psych: pleasant, cooperative, normal speech, normal affect, no hallucinations, no dysarthria Objective Data Vital Signs Vital Signs: Vital Signs - 24 hr 03/18/24 09:35 03/18/24 08:0
[2024-03-19] MEDS: polyethylene glycoL 3350 17 GM POWD.PACK 34 GM PO (08:39)
[2024-03-19] MEDS: POTASSIUM CHLORIDE 10 MEQ ER TABLET PO (08:39)
[2024-03-19] MEDS: LACTULOSE 20 GM/30 ML UDC PO (08:39)
[2024-03-19] MEDS: BISACODYL 10 MG SUPPOSITORY RECTAL (08:39)
--- NOTE | 2024-03-19 10:24 | PC.NURSE ---
moderate-large BM noted this AM post suppository and tap water enema. Mix of solid and liquid stool
--- NOTE | 2024-03-19 16:54 | WPDGIPROGNO ---
Progress Note: A&P Assessment and Plan (1) Constipation: Qualifiers: Constipation type: unspecified constipation type Qualified Code(s): K59.00 - Constipation, unspecified Code(s): K59.00 - Constipation, unspecified Status: Acute Assessment and Plan: having BM again, added linzess and miralax- responding to treatment probably home tomorrow, then can see us in office- we can always set up colonoscopy as outpatient (2) Stercoral colitis: Code(s): K52.89 - Other specified noninfective gastroenteritis and colitis Status: Acute (3) Constipation by delayed colonic transit: Code(s): K59.01 - Slow transit constipation Status: Acute (4) Cerebral palsy: Qualifiers: Cerebral palsy type: unspecified type Qualified Code(s): G80.9 - Cerebral palsy, unspecified Code(s): G80.9 - Cerebral palsy, unspecified Status: Acute (5) Nausea: Code(s): R11.0 - Nausea Status: Acute Subjective Date/time seen: 03/19/24 16:54 Interval history: she is feeling comfortable and better after using lactulose, started to have BM again, no nausea. Review of Systems Review of Systems: All systems reviewed & are unremarkable except as noted in HPI and below Exam Const: General: comfortable and no acute distress HENMT: Face/Nose/Sinus: Normal nares present Eyes: General: appearance normal, both eyes and all related structures Neck: Neck: supple Resp: Effort & Inspection: normal respiratory effort Cardio: Rate: regular rate GI: GI Palp: Yes Soft to palpation and No Tenderness to palpation present (GI) Auscultation: normal bowel sounds Skin: General skin exam: normal color Neuro: Speech: normal speech Other: chronic weakness leg h/o CP Psych: Affect: normal affect Objective Data Vital Signs Vital Signs: Vital Signs - 24 hr 03/18/24 20:43 03/18/24 20:00 03/18/24 20:00 Temperature 97.6 F Pulse Rate 100 102 H Respiratory Rate 16 Blood Pressure 111/77 Pulse Oximetry 99 Oxygen Delivery Room Air 03/18/24 22:00 03/19/24 05:30 03/19/24 00:00 Temperature 97.6 F 96.3 F L Pulse Rate 78 76 60 Respiratory Rate 18 16 Blood Pressure 137/73 124/90 Pulse Oximetry 98 100 Oxygen Delivery 03/19/24 04:00 03/19/24 08:00 03/19/24 08:00 Temperature Pulse Rate 59 L 59 L Respiratory Rate Blood Pressure Pulse Oximetry Oxygen Delivery Room Air 03/19/24 11:39 03/19/24 15:21 Temperature 98.0 F Pulse Rate 79 Respiratory Rate 16 Blood Pressure 122/78 Pulse Oximetry 96 99 Oxygen Delivery Room Air Intake/Output Intake/Output: Intake & Output 03/16/24 03/17/24 03/18/24 03/19/24 23:59 23:59 23:59 23:59 Intake Total 1000 2470 460 Balance 1000 2470 460 Meds/Results Medications: Active Medications Generic Name Dose Route Start Last Admin Trade Name Freq PRN Reason Stop Dose Admin Bisacodyl 10 mg 03/19/24 09:00 03/19/24 08:39 Bisacodyl 10 Mg Suppository RECTAL 10 mg QAM LING Administration Lactulose 20 gm 03/19/24 09:00 03/19/24 08:39 Lactulose 20 Gm/30 Ml Udc PO 20 gm QAM LING Administration Linaclotide 145 mcg 03/19/24 06:30 03/19/24 11:41 Linaclotide 145 Mcg Capsule PO Not Given DAILY@0630 [facility] Home Med Baclofen 0 % 03/18/24 09:00 Pump SUB-Q 04/17/24 08:59 DAILY [facility] Ondansetron HCl 4 mg 03/18/24 01:12 Ondansetron Inj 4 Mg/2 Ml Vial IV PUSH Q4H PRN Nausea Polyethylene Glycol 34 gm 03/18/24 09:00 03/19/24 08:39 Polyethylene Glycol 3350 17 Gm Powd.Pack PO 34 gm DAILY LING Administration Potassium Chloride 10 meq 03/18/24 09:00 03/19/24 08:39 Potassium Chloride 10 Meq Er Tablet PO 10 meq DAILY LING Administration Senna 43 mg 03/18/24 18:00 03/18/24 17:34 Sennosides 8.6 Mg Tablet PO 43 mg QPM LING Administration Radiology Results: ITS Impressions Abdomen/Pelvis CT
[2024-03-19] MEDS: LINACLOTIDE 145 MCG CAPSULE PO (18:25)
[2024-03-19] MEDS: SENNOSIDES 8.6 MG TABLET 43 MG PO (18:25)
--- NOTE | 2024-03-19 18:41 | PC.NURSE ---
0630 linzess given late r/t family wanting to speak to provider before starting new medication. Per Altagracia Quinones, okay to start Linzess this afternoon
--- NOTE | 2024-03-19 18:45 | PC.NURSE ---
Patient's mother reports consistent bowel movements since 1100 roughly ever hour today. BMs have ranged from moderate soft BMs to multiple hard formed small BMs. Spoke with Altagracia Quinones about holding lactulose enema r/t frequent BMs. KUB was ordered for tomorrow AM and if needed lactulose enema can be given then.
[2024-03-20 05:23] LABS: Hematocrit 42.4 % (37.0-47.0); Mean Corpuscular Hemoglobin 30.4 pg (26-34); Mean Platelet Volume 10.9 fl (7.4-10.4); Platelet Count Result 242 k/mm3 (150-375); Red Blood Count 4.61 M/mm3 (4.2-5.4); Red Cell Distribution Width 12.4 % (11.5-14.5); White Blood Count 6.3 K/mm3 (4.5-10.0)
[2024-03-20 05:27] VITALS: BP 133/65; PULSE 84; RESP 20; TEMP 36.2; O2SAT 97
[2024-03-20 05:38] LABS: Alanine Aminotransferase 12 U/L (6-35); Albumin Level 4.4 g/dL (3.5-5.1); Alkaline Phosphatase 50 U/L (38-126); Anion Gap 14 mmol/L (4-12); Aspartate Amino Transferase 22 U/L (14-36); Bilirubin,Total 0.4 mg/dL (0.2-1.3); Blood Urea Nitrogen 15 mg/dL (7-17); Calcium 9.4 mg/dL (8.4-10.2); Carbon Dioxide 21 mmol/L (22-30); Chloride 106 mmol/L (98-107); Estimated Glomerular Filt Rate > 60; Glucose 106 mg/dL (65-110); Potassium 3.5 mmol/L (3.4-5.0); Sodium 141 mmol/L (137-145)
[2024-03-20] MEDS: LINACLOTIDE 145 MCG CAPSULE PO (06:35)
[2024-03-20] MEDS: LACTULOSE 20 GM/30 ML UDC 30 GM PO (09:10)
[2024-03-20] MEDS: POTASSIUM CHLORIDE 10 MEQ ER TABLET PO (09:10)
[2024-03-20] MEDS: polyethylene glycoL 3350 17 GM POWD.PACK 34 GM PO (09:10)
[2024-03-20] MEDS: LACTULOSE ENEMA 200 GM/1,000 ML ENEMA RECTAL ×2 (09:30→21:10)
[2024-03-20] MEDS: ONDANSETRON INJ 4 MG/2 ML VIAL IV PUSH ×2 (11:07→17:55)
--- NOTE | 2024-03-20 13:03 | P.PNIM_ITS ---
Progress Note: A&P Assessment and Plan (1) Constipation: Qualifiers: Constipation type: unspecified constipation type Qualified Code(s): K59.00 - Constipation, unspecified Code(s): K59.00 - Constipation, unspecified Status: Acute Assessment and Plan: Abdominal pain with constipation on imaging * aggressive bowel regimen with stool softeners, laxatives, and Linzess * lactulose enema today x2 * Increased oral lactulose dose. * if no bowel movement, may need colonoscopy * GI consulted and recs appreciated (2) Sinus tachycardia: Code(s): R00.0 - Tachycardia, unspecified Status: Acute Assessment and Plan: ST with heart rate in the 100's * family reports history of high heart rate. Acute elevation could be 2/2 pain * EKG from 03/[address]-T wave abnormality in anterior leads * Troponin negative, denies chest pain * ECHO showed normal LV function with EF 65-70% * Telemetry ordered * HR for the last 24 hours shows rate in the 70's-80's with occasional read greater than 100 * DC telemetry (3) Cerebral palsy: Qualifiers: Cerebral palsy type: unspecified type Qualified Code(s): G80.9 - Cerebral palsy, unspecified Code(s): G80.9 - Cerebral palsy, unspecified Status: Acute Assessment and Plan: Pt is on baclofen pump no other changes in her medications Plan Feeding: Heart healthy Analgesia: Baclofen pain pump Thromboembolic prophylaxis: SCDs Disposition: Awaiting bowel movement and relief of abdominal pain. May need colonoscopy if no improvement. Anticipate her returning home with her mother who is her primary child care team lead. Advance Care Plan I have confirmed that the patient's Advanced Care Plan is present, code status is documented, or surrogate decision maker is listed in patient medical record.: Yes Medication Reconciliation I have utilized all available resources to obtain, update and review the p atients current medications (includes all prescriptions, OTC, herbals, cannabis, and nutritional supplements).: Yes Subjective Date/time seen: 03/20/24 13:03 Interval history: 23 year old with a history of cerebral palsy who presented with abdominal pain and was found to have constipation. 03/19: Patient is seen at the bedside with her mom present. She states that her abdominal pain is slowly improving. She denies nausea or vomiting. She is tolerating a diet. Mom had some concerns about starting Linzess since the patient had not yet had a bowel movement. Since starting lactulose this morning she is now passing hard, small stool. Given the large stool burden noted on CT scan will proceed with lactulose enema today as well. 03/20: No acute events overnight. KUB this morning still shows large stool burden. Repeat lactulose enema. Review of Systems Review of Systems: All other 12 systems are negative Exam 2 Narrative: General: thin, frail, appears stated age. HEENT: normocephalic, atraumatic. Mucous membranes moist. EOMI, PERRLA, bilateral sclera anicteric, no conjunctival injection. Neck supple without JVD, lymphadenopathy, or bruit. Respiratory: clear to auscultation bilaterally. No rales/rhonic/wheezes. Cardiovascular: Regular rate and rhythm, normal S1-S2 upon auscultation. No murmurs, rubs, or clicks. PMI is nondisplaced, capillary refill less than 3 second. Abdomen: Soft, flat, no pulsatile masses, nondistended and nontender. No rebound, no guarding. No CVA tenderness, no hepatosplenomegaly. Bowel henrry
[2024-03-20 13:59] VITALS: BP 107/68; PULSE 78; RESP 16; TEMP 36.4; O2SAT 97
[2024-03-20] MEDS: SENNOSIDES 8.6 MG TABLET 43 MG PO (17:55)
--- NOTE | 2024-03-20 18:04 | WPDGIPROGNO ---
Progress Note: A&P Assessment and Plan (1) Constipation: Qualifiers: Constipation type: unspecified constipation type Qualified Code(s): K59.00 - Constipation, unspecified Code(s): K59.00 - Constipation, unspecified Status: Acute Assessment and Plan: she got sicker today, mother says that has been having more liquid stool but KUB still with large amount of stool- also could be overflow will change lactulose as needed and lower dose of linzess since she got sicker today (2) Stercoral colitis: Code(s): K52.89 - Other specified noninfective gastroenteritis and colitis Status: Acute Assessment and Plan: treated medically (3) Constipation by delayed colonic transit: Code(s): K59.01 - Slow transit constipation Status: Acute (4) Cerebral palsy: Qualifiers: Cerebral palsy type: unspecified type Qualified Code(s): G80.9 - Cerebral palsy, unspecified Code(s): G80.9 - Cerebral palsy, unspecified Status: Acute (5) Nausea: Code(s): R11.0 - Nausea Status: Acute Subjective Date/time seen: 03/20/24 18:04 Interval history: she had large amount of liquid stool but was also nauseous Review of Systems Review of Systems: All systems reviewed & are unremarkable except as noted in HPI and below Exam Const: General: comfortable and no acute distress HENMT: Face/Nose/Sinus: Normal nares present Eyes: General: appearance normal, both eyes and all related structures Neck: Neck: supple Resp: Effort & Inspection: normal respiratory effort Cardio: Rate: regular rate GI: GI Palp: Yes Soft to palpation and No Tenderness to palpation present (GI) Other: BS hypoactive Skin: General skin exam: normal color Neuro: Speech: normal speech Other: chronic weakness leg h/o CP Psych: Affect: normal affect Objective Data Vital Signs Vital Signs: Vital Signs - 24 hr 03/19/24 20:00 03/19/24 20:56 03/20/24 05:27 Temperature 98.4 F 97.1 F L Pulse Rate 87 84 Respiratory Rate 18 20 Blood Pressure 113/76 133/65 Pulse Oximetry 90 97 Oxygen Delivery Room Air 03/20/24 08:00 03/20/24 13:59 Temperature 97.6 F Pulse Rate 78 Respiratory Rate 16 Blood Pressure 107/68 Pulse Oximetry 97 Oxygen Delivery Room Air Intake/Output Intake/Output: Intake & Output 03/17/24 03/18/24 03/19/24 03/20/24 23:59 23:59 23:59 23:59 Intake Total 1000 2470 750 520 Balance 1000 2470 750 520 Meds/Results Medications: Active Medications Generic Name Dose Route Start Last Admin Trade Name Freq PRN Reason Stop Dose Admin Bisacodyl 10 mg 03/19/24 09:00 03/20/24 11:02 Bisacodyl 10 Mg Suppository RECTAL Not Given QAM LING Lactulose 200 gm 03/20/24 20:00 Lactulose Enema 200 Gm/1,000 Ml Enema RECTAL 03/20/24 20:01 ONCE ONE Lactulose 30 gm 03/20/24 18:03 Lactulose 20 Gm/30 Ml Udc PO QAM PRN Constipation Home Med Baclofen 0 % 03/18/24 09:00 Pump SUB-Q 04/17/24 08:59 DAILY LING Ondansetron HCl 4 mg 03/18/24 01:12 03/20/24 17:55 Ondansetron Inj 4 Mg/2 Ml Vial IV PUSH 4 mg Q4H PRN Administration Nausea Polyethylene Glycol 34 gm 03/18/24 09:00 03/20/24 09:10 Polyethylene Glycol 3350 17 Gm Powd.Pack PO 34 gm DAILY LING Administration Potassium Chloride 10 meq 03/18/24 09:00 03/20/24 09:10 Potassium Chloride 10 Meq Er Tablet PO 10 meq DAILY LING Administration Senna 43 mg 03/18/24 18:00 03/20/24 17:55 Sennosides 8.6 Mg Tablet PO 43 mg QPM LING Administration Radiology Results: ITS Impressions Abdomen/Pelvis CT 03/17/24 22:10 IMPRESSION: 1. Stercoral colitis. Abdomen X-Ray 03/20/24 06:01 Impression: Large amount of stool at the rectum is compatible with fecal impaction. Appearance is similar to prior exam. Labs Labs: Laboratory Results - last 24 hr 03/20/24 05:02 WBC 6.3 RBC
[2024-03-20 21:00] VITALS: BP 115/73; PULSE 89; RESP 18; TEMP 36.5; O2SAT 99
[2024-03-21 05:19] LABS: Hematocrit 43.1 % (37.0-47.0); Hemoglobin 14.4 g/dL (12.0-15.0); Mean Corpuscular HGB Conc 33.4 g/dl (32-36); Mean Corpuscular Hemoglobin 30.4 pg (26-34); Mean Corpuscular Volume 90.9 fl (80-100); Mean Platelet Volume 10.6 fl (7.4-10.4); Platelet Count Result 255 k/mm3 (150-375); Red Blood Count 4.74 M/mm3 (4.2-5.4); Red Cell Distribution Width 12.3 % (11.5-14.5); White Blood Count 6.8 K/mm3 (4.5-10.0)
[2024-03-21 05:23] VITALS: BP 108/56; PULSE 68; RESP 18; TEMP 37.1; O2SAT 94
[2024-03-21 05:29] LABS: Alanine Aminotransferase 13 U/L (6-35); Albumin Level 4.3 g/dL (3.5-5.1); Alkaline Phosphatase 50 U/L (38-126); Anion Gap 14 mmol/L (4-12); Aspartate Amino Transferase 20 U/L (14-36); Bilirubin,Total 0.5 mg/dL (0.2-1.3); Blood Urea Nitrogen 11 mg/dL (7-17); Calcium 9.3 mg/dL (8.4-10.2); Carbon Dioxide 20 mmol/L (22-30); Chloride 105 mmol/L (98-107); Estimated Glomerular Filt Rate > 60; Glucose 83 mg/dL (65-110); Potassium 3.1 mmol/L (3.4-5.0); Sodium 139 mmol/L (137-145)
[2024-03-21] MEDS: LINACLOTIDE 72 MCG CAPSULE PO (06:58)
--- NOTE | 2024-03-21 07:27 | PM.IMPN ---
Progress Note: A&P Assessment and Plan (1) Constipation: Qualifiers: Constipation type: unspecified constipation type Qualified Code(s): K59.00 - Constipation, unspecified Code(s): K59.00 - Constipation, unspecified Status: Acute Assessment and Plan: Abdominal pain with constipation on imaging aggressive bowel regimen with stool softeners, laxatives, and Linzess lactulose enema today x2 Increased oral lactulose dose. if no bowel movement, may need colonoscopy GI consulted and recs appreciated (2) Sinus tachycardia: Code(s): R00.0 - Tachycardia, unspecified Status: Acute Assessment and Plan: ST with heart rate in the 100's family reports history of high heart rate. Acute elevation could be 2/2 pain EKG from 03/[address]-T wave abnormality in anterior leads Troponin negative, denies chest pain ECHO showed normal LV function with EF 65-70% Telemetry ordered HR for the last 24 hours shows rate in the 70's-80's with occasional read greater than 100 DC telemetry (3) Cerebral palsy: Qualifiers: Cerebral palsy type: unspecified type Qualified Code(s): G80.9 - Cerebral palsy, unspecified Code(s): G80.9 - Cerebral palsy, unspecified Status: Acute Assessment and Plan: Pt is on baclofen pump no other changes in her medications Plan Feeding: Heart healthy Analgesia: Baclofen pain pump Thromboembolic prophylaxis: SCDs Disposition: Awaiting bowel movement and relief of abdominal pain. May need colonoscopy if no improvement. Anticipate her returning home with her mother who is her primary healthcare economics manager. Advance Care Plan I have confirmed that the patient's Advanced Care Plan is present, code status is documented, or surrogate decision maker is listed in patient medical record.: Yes Medication Reconciliation I have utilized all available resources to obtain, update and review the patients current medications (includes all prescriptions, OTC, herbals, cannabis, and nutritional supplements).: Yes Subjective Date/time seen: 03/21/24 07:27 Interval history: 23 year old with a history of cerebral palsy who presented with abdominal pain and was found to have constipation. 03/19: Patient is seen at the bedside with her mom present. She states that her abdominal pain is slowly improving. She denies nausea or vomiting. She is tolerating a diet. Mom had some concerns about starting Linzess since the patient had not yet had a bowel movement. Since starting lactulose this morning she is now passing hard, small stool. Given the large stool burden noted on CT scan will proceed with lactulose enema today as well. 03/20: No acute events overnight. KUB this morning still shows large stool burden. Repeat lactulose enema. Review of Systems Review of Systems: All other 12 systems are negative Exam Narrative: General: thin, frail, appears stated age. HEENT: normocephalic, atraumatic. Mucous membranes moist. EOMI, PERRLA, bilateral sclera anicteric, no conjunctival injection. Neck supple without JVD, lymphadenopathy, or bruit. Respiratory: clear to auscultation bilaterally. No rales/rhonic/wheezes. Cardiovascular: Regular rate and rhythm, normal S1-S2 upon auscultation. No murmurs, rubs, or clicks. PMI is nondisplaced, capillary refill less than 3 second. Abdomen: Soft, flat, no pulsatile masses, nondistended and nontender. No rebound, no guarding. No CVA tenderness, no hepatosplenomegaly. Bowel sounds hypoactive to all four quadrants. No high pitch or tinkling sounds, resonant to percussion. Extremities: No cyanosis, clubbing, or edema present. Pulses are palpable 2/2. Impaired mobility. Neuro: Alert and orientated x 4. PERRLA. Cranial nerves 2-12 intact without focal deficit. Skin: Warm, dry, and intact, without rash, erythema, or lesion. Lines: PIV Incisions: Psych: pleasant, cooperative, normal speech, normal affect,
[2024-03-21] MEDS: POTASSIUM CHLORIDE 20 MEQ ER TABLET 40 MEQ PO (09:09)
[2024-03-21] MEDS: POTASSIUM CHLORIDE 10 MEQ ER TABLET PO (09:09)
[2024-03-21] MEDS: BISACODYL 10 MG SUPPOSITORY RECTAL (09:09)
[2024-03-21] MEDS: polyethylene glycoL 3350 17 GM POWD.PACK 34 GM PO (09:09)
[2024-03-21 09:21] VITALS: O2SAT 98
--- NOTE | 2024-03-21 16:40 | PM.DS ---
DS: Admitting Diagnosis Discharge Date 03/21/24 Admitting Diagnosis Constipation DS: Discharge Diagnosis Discharge Diagnosis (1) Constipation: Qualifiers: Constipation type: unspecified constipation type Qualified Code(s): K59.00 - Constipation, unspecified Code(s): K59.00 - Constipation, unspecified Status: Acute Assessment and Plan: Abdominal pain with constipation on imaging aggressive bowel regimen with stool softeners, laxatives, and Linzess lactulose enema today x2 Increased oral lactulose dose. if no bowel movement, may need colonoscopy GI consulted and recs appreciated (2) Sinus tachycardia: Code(s): R00.0 - Tachycardia, unspecified Status: Acute Assessment and Plan: ST with heart rate in the 100's family reports history of high heart rate. Acute elevation could be 2/2 pain EKG from 03/[address]-T wave abnormality in anterior leads Troponin negative, denies chest pain ECHO showed normal LV function with EF 65-70% Telemetry ordered HR for the last 24 hours shows rate in the 70's-80's with occasional read greater than 100 DC telemetry (3) Cerebral palsy: Qualifiers: Cerebral palsy type: unspecified type Qualified Code(s): G80.9 - Cerebral palsy, unspecified Code(s): G80.9 - Cerebral palsy, unspecified Status: Acute Assessment and Plan: Pt is on baclofen pump no other changes in her medications Plan Feeding: Heart healthy Analgesia: Baclofen pain pump Thromboembolic prophylaxis: SCDs Disposition: Awaiting bowel movement and relief of abdominal pain. May need colonoscopy if no improvement. Anticipate her returning home with her mother who is her primary animal care attendant. Advance Care Plan I have confirmed that the patient's Advanced Care Plan is present, code status is documented, or surrogate decision maker is listed in patient medical record.: Yes Medication Reconciliation I have utilized all available resources to obtain, update and review the patients current medications (includes all prescriptions, OTC, herbals, cannabis, and nutritional supplements).: Yes DS: Summary Hospital Course Reason for hospitalization: Constipation Hospital Course: This is a very sweet 23-year-old female with a past medical history of cerebral palsy and chronic constipation. She was admitted with complaints of abdominal pain, nausea, vomiting and found to have significant constipation. GI was consulted. She received an aggressive bowel regimen with daily enemas and her bowel function return to normal. She was started on Linzess. She is being discharged home in stable condition with GI follow-up and recommended MiraLax daily with senna at night for bowel regimen. Time Spent with Patient Time attestation: Total time spent providing and/or coordinating discharge services:68 Exam Narrative: General: thin, frail, appears stated age. HEENT: normocephalic, atraumatic. Mucous membranes moist. EOMI, PERRLA, bilateral sclera anicteric, no conjunctival injection. Neck supple without JVD, lymphadenopathy, or bruit. Respiratory: clear to auscultation bilaterally. No rales/rhonic/wheezes. Cardiovascular: Regular rate and rhythm, normal S1-S2 upon auscultation. No murmurs, rubs, or clicks. PMI is nondisplaced, capillary refill less than 3 second. Abdomen: Soft, flat, no pulsatile masses, nondistended and nontender. No rebound, no guarding. No CVA tenderness, no hepatosplenomegaly. Bowel sounds hypoactive to all four quadrants. No high pitch or tinkling sounds, resonant to percussion. Extremities: No cyanosis, clubbing, or edema present. Pulses are palpable 2/2. Impaired mobility. Neuro: Alert and orientated x 4. PERRLA. Cranial nerves 2-12 intact without focal deficit. Skin: Warm, dry, and intact, without rash, erythema, or lesion. Lines: PIV Incisions: Psych: pleasant, cooperative, normal speech, normal affect, no jackson
== END 2024-03-21 12:00 | disposition home or self-care (01) | DRG 392 ==
LOC: ANHED 03-18 01:12 → ANH2MED 03-18 01:47
PROVIDERS: Nurse Practitioner Family; Admitting Provider Family Medicine; Emergency Provider Physician Assistant; PCP Internal Medicine; Visit Provider Nurse Practitioner Acute Care
DX: K59.09 Other constipation (principal); K52.89 Other specified noninfective gastroenteritis and colitis; R00.0 Tachycardia, unspecified; G80.9 Cerebral palsy, unspecified
CPT/HCPCS: 36415; 74018; 74019; 74177; 80053; 81001; 83605; 83690; 83735; 84484; 85025; 85027; 93005; 96361; 96374; 96375; 99285; A9270; C8929; G0378; J2405; J7030; Q9957; Q9967

== ENCOUNTER 2024-05-01 01:47 | Day surgery (SDC) | payer BC, MEDICAID, SELFPAY ==
[2024-04-24 13:26] VITALS: BMI 22.2
[2024-05-01 12:03] VITALS: BP 138/95; PULSE 113; RESP 18; TEMP 36.4; O2SAT 97
[2024-05-01] MEDS: LACTATED RINGERS 1,000 ML 150 ML IV CONT (12:38)
--- NOTE | 2024-05-01 12:50 | WPDANESEPPF ---
Anes - Initial Pre Proc Eval Procedure: Operation Date: 05/01/24 13:00 Proposed Procedures p Colonoscopy - Rafael Moore MD Date/Time: 05/01/24 12:50 Surgeon: Rafael Moore MD Pre Op Diagnosis: Constipation Patient Data Age: 24 Gender: F Height: 1.5 m Weight: 47 kg Last Vital Signs Temp 97.5 F L 05/01/24 12:03 Pulse 113 H 05/01/24 12:03 Resp 18 05/01/24 12:03 BP 138/95 H 05/01/24 12:03 Pulse Ox 97 05/01/24 12:03 O2 Del Method Room Air 05/01/24 12:03 Allergies Allergy/AdvReac Type Severity Reaction Status Date / Time No Known Allergies Allergy Verified 05/01/24 12:01 Home Medications Medication Instructions Recorded Confirmed Type Baclofen Pump See Rx Instructions .Route .COMPLEX 10/21/19 05/01/24 History montelukast 10 mg tablet 10 mg PO DAILY PRN Allergy Symptoms 10/21/19 05/01/24 History sennosides 8.6 mg tablet (Senna 40 mg PO QPM 10/21/19 05/01/24 History Laxative) medroxyprogesterone 150 mg/mL 150 mg IM Q3M #1 mL 06/14/23 05/01/24 Rx intramuscular suspension polyethylene glycol 3350 17 34 g PO DAILY 4 days #136 grams 03/14/24 05/01/24 Rx gram/dose oral powder (Miralax) potassium chloride 10 mEq 10 meq PO DAILY 03/18/24 05/01/24 History capsule,extended release lactulose 20 gram/30 mL oral 30 g (45 mL) PO QAM PRN 03/21/24 05/01/24 Rx solution Constipation #1,200 mL linaclotide 290 mcg capsule 290 mcg PO DAILY #30 caps 03/25/24 05/01/24 Rx (Linzess) Laboratory Tests 05/01/24 12:09 Serum HCG, Qual Cancelled Beta HCG, Quant Pending Patient hx anesthesia problems: none Family hx anesthesia problems: none Results Review: All pre-operative results and documents have been reviewed as part of the pre-operative evaluation. [facility] Past Medical History Medical History Cerebral palsy Nausea Surgical History Surgical History History of strabismus surgery Hx of tonsillectomy Status post insertion of intrathecal baclofen pump Family History Family History Grandparent CHF (congestive heart failure) COPD (chronic obstructive pulmonary disease) Breast cancer Lung cancer Sibling ADHD Social History Social History Smoking status: Never smoker Alcohol intake: never Substance use: never Do You Feel Safe in your Home?: Yes Lack of Transportation: No Lack of Food: Never True Current Housing: I Have Housing Concerned About Future Housing: No Difficulty Paying Gas/Electric Bills: No Difficulty Paying for Meds: No Currently Unemployed: No Education: Grade School Difficulty w/ Childcare or Family Care: No Living arrangements: with family Spiritual care concerns: No Anes - Eval Final PreProcedure Day of Procedure 05/01/24 12:50 Patient weight: normal Heart: regular rate and rhythm Lungs: clear to auscultation Airway: Mallampati scale class III Neurological: alert and oriented Last oral intake: >/= 8 hours ASA classification: III Emergent: no Anesthetic plan: proceed Anesthesia type and monitoring: general GIVS and standard monitoring Results Review: All pre-operative results and documents have been reviewed as part of the pre-operative evaluation. Informed Consent: The patient's anesthetic plan and its attendant risks and benefits were discussed with the patient/family/POA. Questions were solicited and answers provided to the satisfaction of the patient/family/POA.
[2024-05-01 13:03] LABS: Beta HCG Quantitative < 2.39 mIU/ML
--- NOTE | 2024-05-01 13:20 | WPDHPUPDATE1 ---
History and Physical Update Update Date/Time: 05/01/24 13:20 History and Physical has been reviewed, including an updated exam of the patient. There are NO changes in the patient's condition. Risks, benefits, and alternatives have been discussed and questions answered. Patient agrees to proceed with procedure.
[2024-05-01 13:44] VITALS: BP 106/64; PULSE 100; RESP 18; O2SAT 99
[2024-05-01 13:53] VITALS: BP 110/60; PULSE 95; RESP 16; O2SAT 99
[2024-05-01 14:03] VITALS: BP 123/77; PULSE 100; RESP 20; O2SAT 100
== END 2024-05-01 14:12 | disposition home or self-care (01) ==
PROVIDERS: Anesthesiology; PCP Internal Medicine; Referring Provider Nurse Practitioner Family; Visit Provider Internal Medicine Gastroenterology
PROC: 0DJD8ZZ Inspection of Lower Intestinal Tract, Via Natural or Artificial Opening Endoscopic (ICD-10-PCS; CPT 45378; principal; 2024-05-01 13:00)
DX: K59.09 Other constipation (principal); Z98.890 Other specified postprocedural states; Z80.1 Family history of malignant neoplasm of trachea, bronchus and lung; Z80.3 Family history of malignant neoplasm of breast; Z82.49 Family history of ischemic heart disease and other diseases of the circulatory system
CPT/HCPCS: 45378; 36415; 84702; J2704; J7120

== ENCOUNTER 2024-08-28 14:18 | Outpatient (CLI) | payer BC, MEDICAID, SELFPAY ==
[2024-08-28 20:04] LABS: Alanine Aminotransferase 29 U/L (6-35); Albumin Level 4.9 g/dL (3.5-5.1); Alkaline Phosphatase 74 U/L (38-126); Anion Gap 8 mmol/L (4-12); Aspartate Amino Transferase 67 U/L (14-36); Bilirubin,Total 0.6 mg/dL (0.2-1.3); Blood Urea Nitrogen 15 mg/dL (7-17); Calcium 9.5 mg/dL (8.4-10.2); Carbon Dioxide 25 mmol/L (22-30); Chloride 108 mmol/L (98-107); Estimated Glomerular Filt Rate > 60; Glucose 82 mg/dL (65-110); Sodium 141 mmol/L (137-145)
[2024-08-28 20:23] LABS: Vitamin D 25 Hydroxy 51.3 ng/mL
[2024-08-28 20:29] LABS: Thyroid Stimulating Hormone 0.267 uIU/mL (0.465-4.680)
== END 2024-08-28 14:19 | disposition home or self-care (01) ==
LOC: ANHGOSHLAB 14:20
PROVIDERS: PCP Internal Medicine; Visit Provider Clinical Nurse Specialist
DX: Z00.00 Encounter for general adult medical examination without abnormal findings (principal); E55.9 Vitamin D deficiency, unspecified; E05.90 Thyrotoxicosis, unspecified without thyrotoxic crisis or storm
CPT/HCPCS: 36415; 80053; 82306; 84443

== ENCOUNTER 2024-12-15 12:32 | Outpatient (CLI) | payer BC, MEDICAID, SELFPAY ==
--- OUTSIDE RECORDS SUMMARY | 2024-12-15 14:09 | XMS_ITS | Clinical Summary ---
Author Organization [facility] Address [address] [address] Care Team Providers Care Wheel Buffer Name Role Phone Kateyravi Ji Anita DO Primary Care Provider [phone] [facility],non-owned Affiliates and Associated Physician Practices is amultiple site organization consisting of ambulatory clinics and hospital sitesin [place], [place] and [place]. This disclosure is being madepursuant to the Care Everywhere program and may not contain all information available regarding this patient. Last updated 18.[facility] Allergies No known active allergies Medications * Be aware that medications may not be up to date on this document. Alwaysverify current medications with the patient. Medication Sig Dispensed Refills Start Date End Date Status polyethylene glycol 3350 (MIRALAX) powder Take 17 (seventeen) g by mouth 3 times daily Active MedroxyPROGESTERon e Acetate (DEPO-PROVERA IM) Every 12 weeks Act eda (No Medication Selected) by Implant route continuous Active Cholecalciferol (VITAMIN D PO) Take by mouth every 14 days Active lidocaine-prilocai ne (EMLA) 2.5-2.5 % cream 12/19/2016 Active OtherIndications:C P (cerebral palsy), quadriplegic, infantile (HCC) Bilateral AFOs 2 Each 06/22/2017 Active fluticasone propionate (FLONASE) 50 MCG/ACT nasal spray 01/30/2019 Active montelukast (SINGULAIR) 10 MG tablet 02/26/2019 Active [facility] SENNA 8.6 MG tablet TAKE 1 TABLET BY MOUTH EVERY DAY 30 tablet 4 11/26/2020 Active azelastine (OPTIVAR) 0.05 % ophthalmic solution 04/06/2020 Active ipratropium (ATROVENT) 0.03 % nasal spray 05/14/2019 Active medroxyPROGESTERon e (DEPO-PROVERA) 150 MG/ML vial 11/27/2020 Active potassium chloride ER (Micro-K) 10 MEQ capsule Take 1 (one) capsule by mouth daily with breakfast Active ibuprofen (Advil; Motrin) 100 MG/5ML suspension Take 10 mL by mouth every 6 hours as needed 300 mL 02/27/2023 Active acetaminophen (Tylenol) 500 MG tablet Take 1 (one) tablet by mouth every 4 hours as needed for Fever or Pain Maximum allowable Acetaminophen amount = 4 Grams (4000 mg) / 24 hours. Active Replesta 1.25 MG (79262 UT) wafer TAKE 1 WAFER BY MOUTH EVERY 2 WEEKS 02/27/2023 Active [facility] Olopatadine HCl 0.2 % ophthalmic solution INSTILL 2 DROPS INTO BOTH EYES EVERY 12 HOURS AT NIGHT AND IN THE MORNING FOR 12 MONTHS NEEDED. 01/30/2023 Active lactulose (Chronulac) 10 GM/15ML solution TAKE 30 G (45 ML) ORALLY EVERY MORNING NEEDED FOR CONSTIPATION 03/21/2024 Active Linzess 290 MCG capsule 03/25/2024 Active Linzess 72 MCG capsule TAKE 1 CAPSULE BY MOUTH DAILY AT 6:30 03/21/2024 Active atenolol (Tenormin) 25 MG tablet 09/18/2024 Active Hospital, Clinic, or Other Facility Administered Medication Ordered Dose Route Frequency Start Date End Date Status baclofen (Gablofen) injection 40,000 mcgIndications:Muscle Spasticity 96396 mcg IT CONTINUOUS 11/13/2024 Active Active Problems Patient Care Coordination No te Formatting of this note migh t be different from the original. Do you have any cultural preferences or concerns? 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 She has done well with baclofen pump compare to prior to pump placement. 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 She has done well with baclofen pump compare to prior to pump placement. She continues to do well but is tired more then usual. She is leaning to one side and having back pain. Looking at her weight cureve she has lost a lot of weight. Explained mother that she needs to add more calories and she needs to gain weight. Not getting enough calories will cause fatigue and tiredness. She will see assisted sales representative. Explained that if this trend continues then she may need G tube. Mother undestands and will add more calories. Explained to get weight checked every month for 3 months at PMD and send it to us. Baclofen was interrogated. Plan: 420 mcg/day of baclofen dose Next alarm 03/12/19 Leaning to left and back pain. Weight loss Fatigue Follow- assisted sales representative recommendations increase calorie intake. Monthly update with weights for 3 months. Can consider going up on night dose of baclofen if constipation gets corrected and her calorie intake increased. 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 We follow her in CP clinic for her tone and spasticity issues. A trial of tone modulating agents, baclofen and Artane, both were not helpful. She had increased drowsiness on Baclofen. On Artane, she had more jerky, unsettling movements and insomnia. Most of her tone is in the lower extremities. She is non ambulatory but can stand with support. She struggles sitting independently. She receives Botox injections periodically. Has a motorized wheelchair. 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 Plan: Medications: None Splints: to continue to wear as directed Consideration for surgery, Baclofen pump, other: contiSophie is a potential candidate for the baclofen pump. Currently, Mom is ready to proceed but Senia and dad are not yet ready to proceed. Senia will need an appt with neurosurgery when ready to proceed. Continue all therapies: Follow up with the adult CP team at [facility] as directed. Seen today by the following additional CP members: Dr. Rick (orthopedics) Wheelchair vendor Counseling: The family is to call for questions or concerns. Assessment & Plan (07/21/2015 10:11 AM SPEECH LANGUAGE PATHOLOGY ASSISTANT): Medications: None Botox injections: Will give a larger dose in more selective bilateral lower extremity muscles about every 3 months. Splints: to continue to wear as directed Consideration for surgery, Baclofen pump, other: Senia is a potential candidate for the baclofen pump. Currently, Mom is ready to proceed but Senia and dad are not yet ready to proceed. Senia will need an appt with neurosurgery when ready to proceed. Continue all therapies: Physical therapy only and occupational therapy on consult only. Follow up with the CP team in 6 months. Seen today by the following additional CP members: Dr. Rick (orthopedics) Counseling: The family is to call for questions or concerns. Assessment & Plan (10/28/2014 8:58 AM SPEECH LANGUAGE PATHOLOGY ASSISTANT): Medications: None Botox injections: will give a larger dose in more selective bilateral lower extremity muscles-scheduled for November 2014. Splints: continue to wear as directed. Consideration for surgery, Baclofen pump, other: Senia is a potential candidate for the baclofen pump. Mom will discuss with family and make an appointment with neurosurgery to consider. Continue all therapies: Continue PT Follow up with the CP team in 6 months. Counseling: The family is to call for questions or concerns. Assessment & Plan (01/22/2014 3:52 PM CDT): Senia will continue on Artane but will switch to tablet form. The dosage will go up just a tad to 5 mg twice a day from 4 mg bid. She should continue all therapies and splinting. She should continue to receive Botox every 3-4 months if continues to be effective. Acute post-operative pain Lower extremity pain, bilateral Presence of intrathecal baclofen pump Encounters Date Type Department Care Team Description 11/13/2024 1:00 PM SPEECH LANGUAGE PATHOLOGY ASSISTANT Procedure visit [facility] - Neurosurgery [address] [place], [place] [address] [address] Isabel Grey APRN-CNP Spasticity ; Presence of intrathecal baclofen pump 11/13/2024 Travel 10/02/2024 1:00 PM SPEECH LANGUAGE PATHOLOGY ASSISTANT Procedure visit [facility] - Neurosurgery [address] [place] [phone] Isabel Grey APRN-CNP CP (cerebral palsy), quadriplegic, infantile ; Spasticity; Presence of intrathecal baclofen pump 10/02/2024 Travel 09/23/2024 Travel from Last 3 Months Family History Relation Name Status Comments Mother Alive Social History Tobacco Use Types Packs/Day Years Used Date Smoking Tobacco: Never Passive Smoke Exposure: Past Smokeless Tobacco: Never Tobacco Cessation:Counseling Given: Not Answered Comments:Dad smokes outside Alcohol Use Standard Drinks/Week Comments No 0 (1 standard drink = 0.6 oz pur e alcohol) AUDIT-C Answer Date Recorded Q1: How often do you have a drink containing alc ohol? Never 02/27/2023 Average Number of Drinks Not on file 023 Frequency of Binge Drinking Not on file 02/09 Sex and Gender Information Value Date Recorded Sex Assigned at Not on file Gender Identity Not on file Sexual Orientation Not on file Last Filed Vital Signs Vital Sign Reading Time Taken Comments Blood Pressure 112/78 11/13/2024 1:01 PM SPEECH LANGUAGE PATHOLOGY ASSISTANT Pulse 80 11/13/2024 1:01 PM SPEECH LANGUAGE PATHOLOGY ASSISTANT Temperature 36.8 C (98.3 F) 11/13/2024 1:01 PM SPEECH LANGUAGE PATHOLOGY ASSISTANT Respiratory Rate 18 11/13/2024 1:01 PM SPEECH LANGUAGE PATHOLOGY ASSISTANT Oxygen Saturation 98% 11/13/2024 1:01 PM SPEECH LANGUAGE PATHOLOGY ASSISTANT Inhaled Oxygen Concentration 100% 08/14/2016 1 0:10 AM SPEECH LANGUAGE PATHOLOGY ASSISTANT Weight 47.6 kg (105 lb) 11/13/2024 1:01 PM SPEECH LANGUAGE PATHOLOGY ASSISTANT Height 142.2 cm (4' 8 ) 11/13/2024 1:01 PM SPEECH LANGUAGE PATHOLOGY ASSISTANT Body Mass Index 23.54 11/13/2024 1:01 PM SPEECH LANGUAGE PATHOLOGY ASSISTANT Plan of Treatment Upcoming Encounters Date Type Department Care Team (Late st Contact Info) Description 12/18/2024 1:30 PM CDT Procedure visit [facility] - Neurosurgery [address] [place] [phone] Isabel Grey, TONGUE LINING STITCHER-RN X RAY [address] [place] [address] Health Maintenance Due Date Last Done Comments PAP SMEAR 2001 HIV SCREENING 2016 HPV VACCINE (1 - 3-dose series) 2016 CHLAMYDIA/GONORRHEA SCREENING 2017 MENINGOCOCCAL (Group B) VACCINE SHARED DECISION-MAKING (1 of 2 - Standard) 2017 HEPATITIS C SCREENING 03/27/2019 DTAP/TDAP/TD VACCINES (1 - Tdap) 2020 HEPATITIS B VACCINE (1 of 3 - 19+ 3-dose series) 2020 COVID-19 VACCINE (5 - season) 2024 11/05/2022, 08/24/2021, 12/27/2020, Additional history exists DEPRESSION SCREENING 09/10/2024 INFLUENZA VACCINE (Season Ended) 2025 06/07/2012 ZOSTER VACCINE (1 of 2) 2051 HIB VACCINE Aged Out No longer eligi ble based on patient's age to complete this topic MENINGOCOCCAL GROUPS A/C/Y/W VACCINE Aged Out No longer eligible based on patient's age to complete this topic PNEUMOCOCCAL VACCINE Aged Out No long er eligible based on patient's age to complete this topic Medical Devices Implanted Type Area Footwear Sales Leader Device Identifier Shelf Expiration Date Model / Serial / Lot Cath It 2 Pc Cnct Pin Flxb Cls Tip 4fr - Sn/A Implanted:Qty: 1 on 08/14/2016 by Osiris Foley MD at [facility] Right: Spine Lumbar [employer] Neu[employer] 05/10/2018 8780 / N/A / [id number] Description:enters L2-3 cath eter tip ending T-4 Pump It 20ml Snchr Ii Rsrv Fltr Mesh Pch - [id number] Implanted:Qty: 1 on 02/27/2023 by Juan M De La Vega MD at [facility] Right: Abdomen [employer] 07/07/2024 8637-20 / [id number] / Explanted Type Area Footwear Sales Leader Device Identifier Shelf Expiration Date Model / Serial / Lot Pump It .78in Snchr Ii Thk.78in C20ml Ti - [id number] Implanted:Qty: 1 on 08/14/2016 by Osiris Foley MD at [facility] Explanted:Qty: 1 on 02/27/2023 at [facility] Right: Abdomen [employer] 12/22/2017 8637-20 / [id number] / N/A Advance Directives * Full Code (Latest Code Status on File) Date Activated Date Inactivated Comments 02/12/2017 3:13 PM 02/13/2017 7:14 PM * Full Code Date Activated Date Inactivated Comments 08/14/2016 11:26 AM 08/16/2016 3:54 PM * Full Code Date Activated Date Inactivated Comments 07/28/2016 12:28 PM 07/29/2016 4:28 PM * Full Code Date Activated Date Inactivated Comments 07/28/2016 8:15 AM 07/28/2016 12:28 PM Care Teams Wheel Buffer Relationship Specialty Start Date End Date Ji Valadez DO PCP - General Internal Medicine 04/21/22
[2024-12-15 20:56] LABS: Thyroid Stimulating Hormone 0.384 uIU/mL (0.465-4.680); Total Triiodothyronine (T3) 1.21 NG/ML (0.97-1.69)
[2024-12-15 22:21] LABS: Free T4 Free Thyroxine 1.09 ng/dL (0.78-2.19)
[2024-12-19 06:29] LABS: Thyroid Peroxidase Antibodies <1 IU/mL (<9)
== END 2024-12-15 12:33 | disposition home or self-care (01) ==
LOC: ANHGOSHLAB 12:34
PROVIDERS: PCP Internal Medicine; Visit Provider Internal Medicine
DX: E05.90 Thyrotoxicosis, unspecified without thyrotoxic crisis or storm (principal); E53.8 Deficiency of other specified B group vitamins; E55.9 Vitamin D deficiency, unspecified; E87.6 Hypokalemia; Z13.0 Encounter for screening for diseases of the blood and blood-forming organs and certain disorders involving the immune mechanism; Z13.228 Encounter for screening for other metabolic disorders; Z13.29 Encounter for screening for other suspected endocrine disorder
CPT/HCPCS: 36415; 83519; 84439; 84443; 84445; 84480

== ENCOUNTER 2024-12-16 13:47 | Outpatient (CLI) | payer BC, MEDICAID, SELFPAY ==
--- NOTE | ~2024-12-16 | NM_ITS ---
EXAMINATION: NM thyroid scan w uptake DATE: 12/17/2024 14:47 INDICATION: Encounter for screening of other endocrine abnormality COMPARISON: None. TECHNIQUE: 351 microcuries I-123 was administered orally in capsule form. Scintigraphic images of th e thyroid gland were obtained at 24 hours. Thyroid uptake was calculated by the technologist. FINDINGS: The thyroid uptake is 29.5% (normal 10-30%), with the right lobe measuring 17.8% uptake and the left 12.5%. There is no focal area of decreased or increased activity to suggest hypofunctioning or hyperf unctioning nodule. IMPRESSION: 1. Normal thyroid scintigraphy with borderline elevated 24-hour iodine uptake which is suspicious bu t not definitive for Graves' disease. Reviewed, dictated and finalized at location B. IMPRESSION: 1. Normal thyroid scintigraphy with borderline elevated 24-hour iodine uptake which is suspicious but not definitive for Graves' disease.
--- OUTSIDE RECORDS SUMMARY | 2024-12-16 15:22 | XMS_ITS | Clinical Summary ---
Author Organization [facility] Address [address] [place] [address] Care Team Providers Care Plant Scientist Name Role Phone Kateyelisemma Ji Anita DO Primary Care Provider [phone] Source Comments [facility],non-owned Affiliates and Associated Physician Practices is amultiple site organization consisting of ambulatory clinics and hospital sitesin [place], [place], [place] and [place]. This disclosure is being madepursuant to the Care Everywhere program and may not contain all information available regarding this patient. Last updated 18.[facility] Allergies No known active allergies Medications * [...] / 24 hours. Active Replesta 1.25 MG (91109 UT) wafer TAKE 1 WAFER BY MOUTH [...] Status baclofen (Gablofen) injection 40,000 mcgIndications:Muscle Spasticity 15945 mcg IT CONTINUOUS 11/13/2024 Active Active Problems Patient Care Coordination No te Formatting of this note migh t be different from the original. Do you have any cultural preferences or concerns? {YES/NO:18970} 04/21/22 Problem Noted Date Diagnosed Date Intermittent [...] cause fatigue and tiredness. She will see assurance associate. Explained that if this trend continues then she may need G tube. Mother undestands and will add more calories. Explained to get weight checked every month for 3 months at PMD and send it to us. Baclofen was interrogated. Plan: 420 mcg/day of baclofen dose Next alarm 03/12/19 Leaning to left and back pain. Weight loss Fatigue Follow- assurance associate recommendations increase calorie intake. Monthly update with [...] impairments Assessment & Plan (09/22/2019 8:32 AM EXECUTIVE STAFF ASSISTANT): H/O of mixed spastic and dyskinetic [...] up with the adult CP team at [facility] [place] [facility] [place] as directed. Seen today by the following additional CP members: Dr. Rick (orthopedics) Wheelchair vendor Counseling: The family is to call for questions or concerns. Assessment & Plan (07/21/2015 10:11 AM EXECUTIVE STAFF ASSISTANT): Medications: None Botox injections: Will give [...] concerns. Assessment & Plan (10/28/2014 8:58 AM EXECUTIVE STAFF ASSISTANT): Medications: None Botox injections: will give [...] Department Care Team Description 11/13/2024 1:00 PM EXECUTIVE STAFF ASSISTANT Procedure visit [facility] - Neurosurgery [address] [place], [place] [address] [address] Isabel Grey APRN-CNP Spasticity ; Presence of intrathecal baclofen pump 11/13/2024 Travel 10/02/2024 1:00 PM EXECUTIVE STAFF ASSISTANT Procedure visit [facility] - Neurosurgery [address] [place] [phone] Isabel Grey APRN-CNP CP (cerebral palsy), quadriplegic, [...] Comments Blood Pressure 112/78 11/13/2024 1:01 PM EXECUTIVE STAFF ASSISTANT Pulse 80 11/13/2024 1:01 PM EXECUTIVE STAFF ASSISTANT Temperature 36.8 C (98.3 F) 11/13/2024 1:01 PM EXECUTIVE STAFF ASSISTANT Respiratory Rate 18 11/13/2024 1:01 PM EXECUTIVE STAFF ASSISTANT Oxygen Saturation 98% 11/13/2024 1:01 PM EXECUTIVE STAFF ASSISTANT Inhaled Oxygen Concentration 100% 08/14/2016 1 0:10 AM EXECUTIVE STAFF ASSISTANT Weight 47.6 kg (105 lb) 11/13/2024 1:01 PM EXECUTIVE STAFF ASSISTANT Height 142.2 cm (4' 8 ) 11/13/2024 1:01 PM EXECUTIVE STAFF ASSISTANT Body Mass Index 23.54 11/13/2024 1:01 PM EXECUTIVE STAFF ASSISTANT Plan of Treatment Upcoming Encounters Date Type Department Care Team (Late st Contact Info) Description 12/18/2024 1:30 PM CDT Procedure visit [facility] - Neurosurgery [address] [place] [phone] Isabel Grey, GANG WORKER-SIGN PAINTER HELPER [address] [place] [address] Health Maintenance Due Date Last Done Comments [...] this topic Medical Devices Implanted Type Area Vegetable Handler Device Identifier Shelf Expiration Date Model / Serial / Lot Cath It 2 Pc Cnct Pin Flxb Cls Tip 4fr - Sn/A Implanted:Qty: 1 on 08/14/2016 by Osiris Foley MD at [facility] Right: Spine Lumbar [employer] Neurological 05/10/2018 8780 / N/A / [id number] Description:enters L2-3 cath eter tip ending T-4 Pump It 20ml Snchr Ii Rsrv Fltr Mesh Pch - [id number] Implanted:Qty: 1 on 02/27/2023 by Juan M De La Vega MD at [facility] Right: Abdomen [employer] Inc 07/07/2024 8637-20 / [id number] / Explanted Type Area Vegetable Handler Device Identifier Shelf Expiration Date Model / Serial / Lot Pump It .78in Snchr Ii Thk.78in C20ml Ti - [id number] Implanted:Qty: 1 on 08/14/2016 by Osiris Foley MD at [facility] Explanted:Qty: 1 on 02/27/2023 at [facility] Right: Abdomen [employer] 12/22/2017 8637-20 / [id number] / N/A Advance Directives * Full Code [...] 8:15 AM 07/28/2016 12:28 PM Care Teams Plant Scientist Relationship Specialty Start Date End Date Ji Valadez DO PCP - General Internal Medicine 04/21/22
== END 2024-12-16 13:48 | disposition home or self-care (01) ==
PROVIDERS: PCP Internal Medicine; Visit Provider Internal Medicine
DX: E05.90 Thyrotoxicosis, unspecified without thyrotoxic crisis or storm (principal); E87.6 Hypokalemia; E55.9 Vitamin D deficiency, unspecified; E53.8 Deficiency of other specified B group vitamins; Z13.228 Encounter for screening for other metabolic disorders; Z13.29 Encounter for screening for other suspected endocrine disorder; Z13.0 Encounter for screening for diseases of the blood and blood-forming organs and certain disorders involving the immune mechanism
CPT/HCPCS: 78014; A9516

== ENCOUNTER 2025-01-06 13:18 | Emergency (ER) | payer BC, MEDICAID, SELFPAY ==
[2025-01-06 13:37] VITALS: BP 132/87; PULSE 94; RESP 18; TEMP 36.8; O2SAT 100
--- NOTE | 2025-01-06 13:40 | ED.URI ---
HPI - URI/Sore Throat General Chief Complaint: Upper Respiratory Infection Stated Complaint: SINUS/COUGH/FEVER Time Seen by Provider: 01/06/25 14:07 Source: patient and RN notes reviewed Mode of arrival: ambulatory Limitations: no limitations History of Present Illness HPI Narrative: 24-year-old female with history of cerebral palsy presents with concern for 5 day history of nasal congestion, productive cough. Reports she has been taking [id number] medication without relief. Reports sweats MD elicited complaint: cough and nasal congestion Related Data Home Medications ?Medication ?Instructions ?Recorded ?Confirmed ?Last Taken ?Type Baclofen Pump See Rx Instructions .Route .COMPLEX 10/21/19 09/01/24 10/30/19 History potassium chloride 10 mEq 10 meq PO DAILY 03/18/24 09/01/24 04/30/24 History capsule,extended release Allergies Allergy/AdvReac Type Severity Reaction Status Date / Time No Known Allergies Allergy Verified 01/06/25 13:49 Review of Systems Review of Systems: CONSTITUTIONAL: Denies malaise, sweats. Denies chills or fever. EYES: Denies visual changes, redness, or discharge. ENT: Reports rhinorrhea, congestion, sinus pain CARDIOVASCULAR: Denies chest pain, palpitations, or edema. RESPIRATORY: Reports cough. Denies dyspnea. GASTROINTESTINAL: Denies abdominal pain, nausea, vomiting, diarrhea SKIN: Denies rash or itching. MUSCULOSKELETAL: Denies myalgia. NEUROLOGIC: Denies headache. All systems reviewed & are unremarkable except as noted in HPI and below PMFSH Past Medical History Medical History Nausea Cerebral palsy Surgical History Surgical History History of strabismus surgery Status post insertion of intrathecal baclofen pump Hx of tonsillectomy Family History Family History Grandparent CHF (congestive heart failure) COPD (chronic obstructive pulmonary disease) Breast cancer Lung cancer Sibling ADHD Social History Social History Smoking status: Never smoker Alcohol intake: never Substance use: never Do You Feel Safe in your Home?: Yes Lack of Transportation: No Lack of Food: Never True Current Housing: I Have Housing Concerned About Future Housing: No Difficulty Paying Gas/Electric Bills: No Difficulty Paying for Meds: No Currently Unemployed: No Education: Grade School Difficulty w/ Childcare or Family Care: No Living arrangements: with family Spiritual care concerns: No Comments At time of signature, agree with nursing past medical, surgical, social and family history. There is no relevant family history pertinent to the presenting complaint Exam Narrative: GENERAL: Nontoxic-appearing, well-nourished, and in no acute distress. HEAD: Normocephalic EYES: PERRLA, conjunctivae clear ENT: Nares clear, turbinates edematous and erythematous. Mucous membranes moist. TM pearly monroe with dull light reflex bilaterally; no tragal tenderness. Oropharynx not erythematous without lesions. Tonsils not enlarged and without exudate, no drooling, no hoarseness, no trismus, uvula midline. NECK: Supple. No lymphadenopathy CHEST: Clear to auscultation, breath sounds equal. No wheezing, rhonchi, rales, or stridor. No respiratory distress, speaks in full sentences. Cough noted HEART: Regular rate and rhythm. No murmur heard. SKIN: Warm, dry, no rash. NEURO: Alert and oriented x3. PSYCH: Normal mood and affect Course Course Emergency Course: Patient is aware of diagnosis, understands and agrees to treatment plan. Anticipatory guidance given. Patient agrees to follow-up as directed and is aware of reasons to seek care at the emergency department. Portions of this record may have been created with voice recognition software Level of Care: Express Care Visit Vital Signs Vital signs: Vital Signs Temperature 98.2 F 01/06/25 13:37 Pulse Rate 94 01/06/25 13:37 Respiratory Rate 18 01/06/25 13:37 Blood Pressure 132/87 01/06/25 13:37 Pulse Oximetry 100 01/06/25 13:37 Temperature 98.2 F 01/06/25 13:37 Pulse Rate 94 01/06/25 13:37 Respiratory Rate 18 01/06/25 13:37 Blood Pressure 132/87 01/06/25 13:37 Pulse Oximetry 100 01/06/25 13:37 Reviewed. MDM - URI/Sore Throat MDM Narrative Medical decision making narrative: Differential diagnosis considered: Frederick virus, strep pharyngitis, allergic rhinitis, upper respiratory tract infection, sinusitis, rhinosinusitis, nasopharyngitis. viral pharyngitis, otitis media, otitis externa, pneumonia, bronchitis, viral cough syndrome, viral syndrome, and influenza. Exam findings show no acute concerns or changes; patient is non-toxic appearing and is in no distress. Patient is appropriate for outpatient treatment and follow-up. Lab Data Attestation: I reviewed the patient's lab results. Critical Care Time Critical Care Time Critical Care Time: No Discharge Plan Discharge Clinical Impression: Sinobronchitis Patient Disposition: Home Condition: Stable Instructions: Antibiotic Form, Sinusitis (ED) Additional Instructions: Take medications as prescribed Recommend antihistamine such as Benadryl at night time and Zyrtec or Myah during the day Also, recommend symptomatic treatment includes: rest, fluids, and increase humidity of the air at home. Recommend Acetaminophen as directed on the bottle to reduce fever, pain, headache. Please schedule a follow-up visit with your personal physician for further evaluation and treatment within 3-5days. If your symptoms persist, change or worsen significantly before you can contact your personal physician then please, without delay, go to the emergency department for further evaluation. Patient Language: Sinhala Prescriptions: New methylprednisolone [Medrol (Tyrese)] 4 mg tablets,dose pack See Rx Instructions .ROUTE .COMPLEX Qty: 21 0RF Rx Instructions: orally per package directions amoxicillin-pot clavulanate 875-125 mg tablet 1 tablet PO Q12H 10 Days Qty: 20 0RF No Action Baclofen Pump See Rx Instructions .ROUTE .COMPLEX Rx Instructions: PUMP IN ABDOMEN CHANGED [id number]- UNKNOWN DOSE polyethylene glycol 3350 [Miralax] 17 gram/dose powder 34 g PO DAILY 4 Days Qty: 136 0RF potassium chloride 10 mEq capsule, extended release 10 meq PO DAILY Rx Instructions: TAKE 1 CAPSULE DAILY lactulose 20 gram/30 mL Solution 30 g PO QAM PRN (Reason: Constipation) Qty: 1200 0RF selenium sulfide 2.25 % shampoo 10 ml topical DAILY Qty: 180 2RF Rx Instructions: lather into wet hair; leave in place for approximately 3 mins ; rinse Linzess 290 mcg capsule See Rx Instructions .ROUTE .COMPLEX Qty: 90 3RF Dose Instruction: TAKE 1 CAPSULE DAILY Rx Instructions: TAKE 1 CAPSULE DAILY atenolol 25 mg tablet 25 mg PO DAILY Qty: 90 1RF medroxyprogesterone 150 mg/mL suspension 150 mg IM [id number] Qty: 1 3RF Follow-up/Referrals: Ji Valadez DO [Primary Care Provider] - Time of Disposition: 14:21
[2025-01-06 14:08] LABS: EDCOVIDSCREEN Negative (Negative); EDINFLUASCREEN Negative (Negative); EDINFLUBSCREEN Negative (Negative)
== END 2025-01-06 14:40 | disposition home or self-care (01) ==
PROVIDERS: Emergency Provider Nurse Practitioner; PCP Internal Medicine
DX: J32.9 Chronic sinusitis, unspecified (principal); J40 Bronchitis, not specified as acute or chronic; G80.9 Cerebral palsy, unspecified; Z20.822 Contact with and (suspected) exposure to COVID-19
CPT/HCPCS: 87426; 87804; 99213; G0463

== ENCOUNTER 2025-04-23 10:24 | Outpatient (CLI) | payer BC, MEDICAID, SELFPAY ==
--- OUTSIDE RECORDS SUMMARY | 2025-04-23 10:41 | XMS_ITS | Clinical Summary ---
Author Organization [facility] Address [address] [place] [address] Care Team Providers Care Carton Machine Operator Name Role Phone Kateyelisemma Ji Anita DO Primary Care Provider Source Comments [facility],non-owned Affiliates and Associated Physician Practices is amultiple site organization consisting of ambulatory clinics and hospital sitesin [place], [place]. This disclosure is being madepursuant to the Care Everywhere program and may not contain all information available regarding this patient. Last updated [facility] Allergies No known active allergies Medications * Be aware that medications may not be up to date on this document. Alwaysverify current medications with the patient. polyethylene glycol 3350 (MIRALAX) powder Take 17 (seventeen) g by mouth 3 times daily Active (No Medication Selected) by Implant route continuous Active OtherIndication s:CP (cerebral palsy), quadriplegic, infantile (HCC) Bilateral AFOs 2 Each 7 Active fluticasone propionate (FLONASE) 50 MCG/ACT nasal spray 9 Active montelukast (SINGULAIR) 10 MG tablet 9 Active [facility] SENNA 8.6 MG tablet TAKE 1 TABLET BY MOUTH EVERY DAY 30 tablet 4 1 Active Additional Information Patient taking differently: PRN, Reported on 04/09/2025 azelastine (OPTIVAR) 0.05 % ophthalmic solution 0 Active medroxyPROGESTE Renzo (DEPO-PROVERA) 150 MG/ML vial 1 Active potassium chloride ER (Micro-K) 10 MEQ capsule Take 1 (one) capsule by mouth daily with breakfast Active ibuprofen (Advil; Motrin) 100 MG/5ML suspension Take 10 mL by mouth every 6 hours as needed 300 mL 3 Active acetaminophen (Tylenol) 500 MG tablet Take 1 (one) tablet by mouth every 4 hours as needed for Fever or Pain Maximum allowable Acetaminophen amount = 4 Grams (4000 mg) / 24 hours. Active [facility] Olopatadine HCl 0.2 % ophthalmic solution INSTILL 2 DROPS INTO BOTH EYES EVERY 12 HOURS AT NIGHT AND IN THE MORNING FOR 12 MONTHS NEEDED. 3 Active lactulose (Chronulac) 10 GM/15ML solution TAKE 30 G (45 ML) ORALLY EVERY MORNING NEEDED FOR CONSTIPATION 4 Active Linzess 290 MCG capsule 4 Active atenolol (Tenormin) 25 MG tablet 5 Active Selenium Sulfide 2.25 % 10 ML TOPICALLY DAILY LATHER INTO WET HAIR LEAVE IN PLACE FOR APPROXIMATELY 3 MINS RINSE 4 Active Hospital, Clinic, or Other Facility Administered Medication Ordered Dose Route Frequency Start Date End Date Status baclofen (Gablofen) injection 40,000 mcgIndications:Muscle Spasticity 89143 mcg IT CONTINUOUS 04/09/2025 Active Active Problems Patient Care Coordination No te Formatting of this note migh t be different from the original. Do you have any cultural preferences or concerns? {YES/NO:95080} 04/21/22 Problem Noted Date Diagnosed Date Intermittent [...] cause fatigue and tiredness. She will see lamination builder. Explained that if this trend continues then she may need G tube. Mother undestands and will add more calories. Explained to get weight checked every month for 3 months at PMD and send it to us. Baclofen was interrogated. Plan: 420 mcg/day of baclofen dose Next alarm 03/12/19 Leaning to left and back pain. Weight loss Fatigue Follow- lamination builder recommendations increase calorie intake. Monthly update with [...] impairments Assessment & Plan (09/22/2019 8:32 AM CAM MILLING MACHINE OPERATOR): H/O of mixed spastic and dyskinetic cerebral [...] up with the adult CP team at [facility] as directed. Seen today by the following additional CP members: Dr. Rick (orthopedics) Wheelchair vendor Counseling: The family is to call for questions or concerns. Assessment & Plan (07/21/2015 10:11 AM CAM MILLING MACHINE OPERATOR): Medications: None Botox injections: Will give a [...] concerns. Assessment & Plan (10/28/2014 8:58 AM CAM MILLING MACHINE OPERATOR): Medications: None Botox injections: will give a [...] Encounters Date Type Department Care Team Description 04/09/2025 1:00 PM CDT Procedure visit [facility] - Neurosurgery [address] [place] [address], [place] [id number] Isabel Grey, JETT-SETTER JUICE PACKAGING MACHINES Spasticity ; CP (cerebral palsy), quadriplegic, infantile (HCC); Presence of intrathecal baclofen pump 04/09/2025 Travel 03/05/2025 1:00 PM CDT Procedure visit [facility] - Neurosurgery [address] [place] [address] [place] [address] Isabel Grey APRN-JHONNY Spasticity ; CP (cerebral palsy), quadriplegic, infantile (HCC); Presence of intrathecal baclofen pump 03/05/2025 Travel 01/29/2025 10:30 AM CDT Office Visit [facility] - Neurosurgery [address] [place] [phone] Isabel Grey APRN-JHONNY Spasticity (Primary Dx); CP (cerebral palsy), quadriplegic, infantile (HCC); Presence of intrathecal baclofen pump 01/29/2025 Travel from Last 3 Months Family History [...] of Binge Drinking Not on file 02/09 Comments No Sex and Gender Information Value Date Recorded Sex Assigned at Not on file Legal Sex Female 5:41 AM CAM MILLING MACHINE OPERATOR Gender Identity Not on file Sexual Orientation Not on file Last Filed Vital Signs Vital Sign Reading Time Taken Comments Blood Pressure 139/83 04/09/2025 12:59 PM CDT Pulse 118 04/09/2025 12:59 PM CDT Temperature 36.8 C (98.3 F) 04/09/2025 12:59 PM CDT Respiratory Rate 18 01/29/2025 10:04 AM CDT Oxygen Saturation 95% 04/09/2025 12:59 PM CDT Inhaled Oxygen Concentration 100% 08/14/2016 1 0:10 AM CAM MILLING MACHINE OPERATOR Weight 47.2 kg (104 lb) 04/09/2025 12:59 PM CDT Height 149.9 cm (4' 11) 04/09/2025 12:59 PM CDT Body Mass Index 21.01 04/09/2025 12:59 PM CDT Plan of Treatment Upcoming Encounters Date Type Department Care Team (Late st Contact Info) Description 05/14/2025 1:30 PM CDT Procedure visit [facility] - Neurosurgery [address] [place] [address], [place] [phone] Isabel Grey, JETT-JHONNY [address] [place] [address] [address] [place] [address] 08/18/2025 9:00 AM CAM MILLING MACHINE OPERATOR Office [facility] - Neurology [address] [place] [address], [place] [phone] Rajni Bassett MD [address] [place] [address] [address] [place] [address] Health Maintenance Due Date Last Done Comments HIV SCREENING 2016 HPV VACCINE (1 - 3-dose series) 2016 CHLAMYDIA/GONORRHEA SCREENING 2017 HEPATITIS C SCREENING 03/27/2019 DTAP/TDAP/TD VACCINES (1 - Tdap) 2020 HEPATITIS B VACCINE (1 of 3 - 19+ 3-dose series) 2020 COVID-19 VACCINE ( season) 2024 11/05/2022, 08/24/2021, 12/27/2020, Additional history exists DEPRESSION SCREENING 09/10/2024 INFLUENZA VACCINE (#1) 2025 06/07/2012 ZOSTER VACCINE (1 of 2) 2051 HIB VACCINE Aged Out No longer eligi ble based on patient's age to complete this topic MENINGOCOCCAL (Group B) VACCINE SHARED DECISION-MAKING Aged Out No longer eligible based on patient's age to complete this topic MENINGOCOCCAL GROUPS A/C/Y/W VACCINE Aged Out No longer eligible based on patient's age to complete this topic PNEUMOCOCCAL VACCINE Aged Out No long er eligible based on patient's age to complete this topic Medical Devices Implanted Type Area Supervisor Fishing Device Identifier Shelf Expiration Date Model / Serial / Lot Cath It 2 Pc Cnct Pin Flxb Cls Tip 4fr - Sn/A Implanted:Qty: 1 on 08/14/2016 by Osiris Foley MD at [facility] Right: Spine Lumbar [employer] 05/10/2018 8780 / N/A / [id number] Description:enters L2-3 cath eter tip ending T-4 Pump It 20ml Snchr Ii Rsrv Fltr Mesh Pch - [id number] Implanted:Qty: 1 on 02/27/2023 by Juan M De La Vega MD at [facility] Right: Abdomen [employer] Inc 07/07/2024 8637-20 / [id number] / Explanted Type Area Supervisor Fishing Device Identifier Shelf Expiration Date Model / Serial / Lot Pump It .78in Snchr Ii Thk.78in C20ml Ti - [id number] Implanted:Qty: 1 on 08/14/2016 by Osiris Foley MD at [facility] Explanted:Qty: 1 on 02/27/2023 at [facility] Right: Abdomen [employer] Inc 12/22/2017 8637-20 / [id number] / N/A Insurance [facility] [place] [facility] Advance Directives * Full Code (Latest Code [...] 8:15 AM 07/28/2016 12:28 PM Care Teams Carton Machine Operator Relationship Specialty Start Date End Date Ji Valadez DO PCP - General Internal Medicine 04/21/22
[2025-04-23 14:16] LABS: Free T4 Free Thyroxine 1.28 ng/dL (0.78-2.19)
[2025-04-23 14:31] LABS: Thyroid Stimulating Hormone 0.316 uIU/mL (0.465-4.680); Total Triiodothyronine (T3) 1.11 NG/ML (0.82-1.58)
== END 2025-04-23 10:25 | disposition home or self-care (01) ==
LOC: ANHGOSHLAB 10:27
PROVIDERS: PCP Internal Medicine; Visit Provider Internal Medicine
DX: E05.90 Thyrotoxicosis, unspecified without thyrotoxic crisis or storm (principal)
CPT/HCPCS: 36415; 83520; 84439; 84443; 84445; 84480